=== PATIENT | female | born 1965 | race Caucasian/White ===

== ENCOUNTER → 2017-05-26 | Outpatient (CLI) | payer BC ==
--- NOTE | 2017-05-26 08:57 | US ---
EXAMINATION TYPE: US pelvic complete DATE OF EXAM: 05/26/2017 COMPARISON: NONE CLINICAL HISTORY: E34.9 Endocrine disorder, patient starting HRT due to postmenopausal symptoms. TECHNIQUE: Transabdominal (TA) Date of LMP: Patient unsure, several years postmenopausal EXAM MEASUREMENTS: Uterus: 6.7 x 4.2 x 4.6 cm Endometrial Stripe: 0.4 cm Right Ovary: 2.0 x 1.7 x 1.7 cm Left Ovary: 1.9 x 1.4 x 1.3 cm 1. Uterus: Anteverted wnl 2. Endometrium: wnl 3. Right Ovary: wnl 4. Left Ovary: wnl 5. Bilateral Adnexa: wnl 6. Posterior cul-de-sac: wnl IMPRESSION: NORMAL PELVIC ULTRASOUND.
== END | disposition home or self-care (01) ==
LOC: RADUSWWP 08:16
PROVIDERS: ATTEND Surgery
DX: E34.9 Endocrine disorder, unspecified (principal)
CPT/HCPCS: 76856

== ENCOUNTER → 2018-09-02 | Outpatient (CLI) | payer BC ==
--- NOTE | 2018-09-03 09:12 | MM ---
Reason for exam: screening (asymptomatic). Last mammogram was performed 1 year ago. History: Patient is postmenopausal. Taking estrogen for 4 months. Physical Findings: A clinical breast exam by your physician is recommended on an annual basis and results should be correlated with mammographic findings. MG 3D Screening Mammo W/Cad Bilateral CC and MLO view(s) were taken. Prior study comparison: September 01, 2017, bilateral MG 3d screening mammo w/cad. July 01, 2016, bilateral MG 3d screening mammo w/cad. There are scattered fibroglandular densities. No suspicious abnormality. No significant changes when compared with prior studies. ASSESSMENT: Negative, BI-RAD 1 RECOMMENDATION: Routine screening mammogram of both breasts in 1 year.
== END | disposition home or self-care (01) ==
LOC: RADMAMWWP 12:29
PROVIDERS: ATTEND Surgery
DX: Z12.31 Encounter for screening mammogram for malignant neoplasm of breast (principal)
CPT/HCPCS: 77063; 77067

== ENCOUNTER → 2018-09-13 | Outpatient (CLI) | payer BC ==
--- NOTE | 2018-09-14 07:27 | US ---
EXAMINATION TYPE: US pelvis complete transvag DATE OF EXAM: 09/13/2018 COMPARISON: US 05/26/2017 CLINICAL HISTORY: E34.9 HORMONE IMBALANCE. TECHNIQUE: . Transabdominal sonographic images of the pelvis were acquired. Transvaginal sonographi c images were medically necessary to better assess the following anatomy: endometrium Date of LMP: About 3 years ago EXAM MEASUREMENTS: Uterus: 7.9 x 3.8 x 4.4 cm Endometrial Stripe: 0.2 cm Right Ovary: 2.1 x 1.0 x 1.5 cm Left Ovary: 2.2 x 1.3 x 1.6 cm 1. Uterus: Anteverted Multiple nabothian cysts visualized within cervix. Heterogeneous myometrium. Multiple small probable hypoechoic fibroids visualized, largest measuring 1.6 x 1.2 x 1.3 cm 2. Endometrium: wnl 3. Right Ovary: wnl 4. Left Ovary: wnl 5. Bilateral Adnexa: wnl 6. Posterior cul-de-sac: wnl There is incidental note of a sessile filling defect within the urinary bladder that appears avascula r measuring 3 mm x 8 mm layering dependently and left laterally. This persists throughout the exam. IMPRESSION: 1. Heterogenous myometrium with few small well-circumscribed probable leiomyomas measuring up to 1.6 cm appearing intramural. 2. Incidentally noted filling defect within the urinary bladder that could represent atelectasis or a sessile neoplasm. CT urogram or direct visualization could be performed for further evaluation. 3. No endometrial thickening.
== END ==
LOC: RADUSWWP 15:29
PROVIDERS: ATTEND Surgery
DX: E34.9 Endocrine disorder, unspecified (principal)
CPT/HCPCS: 76830; 76856

== ENCOUNTER → 2019-05-02 | Outpatient (CLI) | payer OTHER ==
--- NOTE | 2019-05-02 10:15 | US ---
EXAMINATION TYPE: US abdomen complete DATE OF EXAM: 05/02/2019 COMPARISON: NONE CLINICAL HISTORY: R10.84 abdominal pain. Pt states upset stomach, bloating x 6 months EXAM MEASUREMENTS: Liver Length: 16.9 cm Gallbladder Wall: 0.3 cm CBD: 0.4 cm Spleen: 10.6 cm Right Kidney: 10.6 x 3.8 x 3.5 cm Left Kidney: 10.4 x 5.6 x 5.3 cm Pancreas: wnl, tail obscured by overlying bowel gas Liver: There is increased echogenicity of the hepatic parenchyma with diminished visualization of th e portal triads most commonly relating to hepatic steatosis and limiting evaluation for underlying he patic masses. Gallbladder: wnl Evidence for sonographic Krishnan's sign: No CBD: wnl Spleen: wnl Right Kidney: Cortical thinning with cortical scarring Left Kidney: Probable Dromedary hump Upper IVC: wnl Abd Aorta: wnl The intrahepatic portion of the IVC and proximal abdominal aorta are within normal limits. There is no evidence of cholelithiasis. Common bile duct is unremarkable. The visualized portions of the mccain creas are homogenous. The spleen is unremarkable. Kidneys are symmetric and free of hydronephrosis. No renal lesions are seen. IMPRESSION: 1. No sonographic evidence of cholelithiasis nor acute cholecystitis. 2. Sonographic findings most commonly related to hepatic steatosis. Correlate with liver function alex ts. 3. Cortical thinning in the right kidney with scarring.
== END | disposition home or self-care (01) ==
LOC: RADUSWWP 08:28
PROVIDERS: ATTEND Family Medicine
DX: N28.89 Other specified disorders of kidney and ureter (principal)
CPT/HCPCS: 76700

== ENCOUNTER → 2019-05-17 | Outpatient (CLI) | payer OTHER ==
--- NOTE | 2019-05-17 15:20 | NM ---
EXAMINATION TYPE: NM hepatobiliary w EF DATE OF EXAM: 05/17/2019 COMPARISON: Complete abdominal ultrasound 15 days ago. HISTORY: Generalized abdominal pain with diminished appetite. TECHNIQUE: After the intravenous administration of 4.19 mCi Tc 99m Mebrofenin hepatobiliary scintigra phy is performed. Immediate images post injection. FINDINGS: There is satisfactory initial accumulation of tracer by the liver. The gallbladder is visualized wit hin 20 minutes. The small bowel activity is noted within 60 minutes. At one hour 8 ounces of oral e nsure plus is given to mimic CCK and gallbladder ejection fraction is calculated at 74 %, in the norm al range. Therefore there is no scintigraphic evidence of cystic or common bile duct obstruction to suggest acute cholecystitis or gallbladder dyskinesia. IMPRESSION: Exam is within normal limits.
== END | disposition home or self-care (01) ==
LOC: RADNMMAIN 12:48
PROVIDERS: ATTEND Family Medicine
DX: R10.84 Generalized abdominal pain (principal)
CPT/HCPCS: 78226; A9537

== ENCOUNTER 2019-07-16 17:07 | Observation (INO) | payer OTHER ==
[2019-07-16] MEDS ORDERED: NITROGLYCERIN SL TABS 0.4 MG TAB SUBLINGUAL STA (17:33)
--- NOTE | 2019-07-16 17:40 | ED ---
General Adult HPI - General Chief complaint: Chest Pain Stated complaint: Back/neck pain chest tightness Time Seen by Provider: 07/16/19 17:23 Source: patient, family, RN notes reviewed Mode of arrival: wheelchair Limitations: no limitations - History of Present Illness Initial comments: Chief complaint and history of present illness this is a 54-year-old female reports that soon after she awakened this morning she had discomfort between her shoulder blades. She states that it is somewhat reproducible by deep breathing twisting and turning. Not relieved by anything. This persisted throughout the day. States she thinks she is mildly short of breath because of it. She does report that she was mildly diaphoretic at one time but at this time. Otherwise no radiation of pain. Denies any injuries from heavy lifting. - Related Data Home Medications Medication Instructions Recorded Confirmed Aspirin 650 mg PO ONCE PRN 07/16/19 07/16/19 Hormone 1 dose INTRADERMA Q90D 07/16/19 07/16/19 Pellet(Estrogen/Testosterone) Losartan-Hctz 50-12.5 mg [Hyzaar 1 tab PO DAILY 07/16/19 07/16/19 50-12.5] Naproxen Sodium [Aleve] 220 mg PO DAILY PRN 07/16/19 07/16/19 Progesterone(Unknown Dose) 1 cap PO HS 07/16/19 07/16/19 Allergies Allergy/AdvReac Type Severity Reaction Status Date / Time No Known Allergies Allergy Verified 07/16/19 17:28 Review of Systems ROS Statement: Those systems with pertinent positive or pertinent negative responses have been documented in the HPI. Review of systems. Patient denies any headache no visual acuity changes no neck pain. She describes discomfort as an ache between her shoulder blades. Persistent throughout the day. No nausea no vomiting she reports she was a little diaphoretic at home but not now. No radiation of discomfort to the arms or neck. No nausea no vomiting no neuro deficits. Patient reports the discomfort will get worse to take a deep breath or she leans forward. Not relieved by anything particular. No pain with palpation over the area. No rashes noted. All systems are reviewed. Past medical problems significant for high blood pressure for which takes medication. Patient surgeries include a . She developed tubal ligation. ALLERGIES none. Former smoker, occasional alcohol use. Family history noncontributory. ROS Other: All systems not noted in ROS Statement are negative. Past Medical History Past Medical History: No Reported History History of Any Multi-Drug Resistant Organisms: None Reported Past Surgical History: Section, Tubal Ligation, Uterine Ablation Past Anesthesia/Blood Transfusion Reactions: No Reported Reaction Past Psychological History: No Psychological Hx Reported Smoking Status: Former smoker Past Alcohol Use History: Occasional Past Drug Use History: None Reported - Past Family History Mother Family Medical History: Deep Vein Thrombosis (DVT) General Exam - General Exam Comments Initial Comments: General: The patient is awake and alert, here because of persistent discomfort that starts in the area between her shoulder blades. Vital signs shows temperature 97.5 pulse 85 respiratory rate 18 pulse ox 97% room air blood pressure 165/103. Eye: Pupils are equal, round and reactive to light, extra-ocular movements are intact; there is normal conjunctiva bilaterally. No signs of icterus. Ears, nose, mouth and throat: There are moist mucous membranes and no oral lesions. Neck: The neck is supple, there is no tenderness, no carotid bruit. Cardiovascular: There is a regular rate and rhythm. No murmur, rub or gallop is appreciated. Respiratory: Lungs are clear to auscultation, respirations are non-labored, breath sounds are equal. No wheezes, stridor, rales, or rhonchi. I'll increased discomfort with deep breathing to the area between her shoulder blades. Gastrointestinal: Soft, non-distended, non-tender abdomen without masses or organomegaly noted. There is no rebound or guarding present. No CVA tenderness. Bowel sounds are unremarkable. Back: Discomfort started and persists in the area between her shoulder blades. No evidence of any rash. No pain to palpation over the area. Mild increased discomfort with deep breathing or twisting and turning. But not leaning forward. Nothing relieves the discomfort. Musculoskeletal: Normal ROM, no tenderness, There is no pedal edema. There is no calf tenderness or swelling. Sensation intact. Neurological: No neuro deficits. Alert and oriented Skin: Skin is warm and dry and no rashes or lesions are noted. Early shingles discussed. Psychiatric: Cooperative, appropriate mood & affect. 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 Rate 78 OH interval is 142 QRS 82 QT 426 QTc 485. Prolonged QT noted. No old EKG available to compare to. Dr. Land Medical Decision Making - Medical Decision Making Decision making; this is a 54-year-old female presents emergency room this discomfort in the interscapular region. Also elevated blood pressure. Non-radiation of pain. The pain does get slightly worse with a cough or twisting or turning do not leaning forward or lying back. The patient presents with elevated blood pressure 165/103. Repeated at 185/110. Subungual nitro was given with good results rales at the blood pressure bring it down to 138/88. But without change in her discomfort in the interscapular region. For this reason the patient will have a stat CT angiogram of the aorta from ascending to abdominal runoff. Also performed at such a way to evaluate for possibility of pulmonary emboli. Patient denying any ALLERGIES to IV dye, no diabetic problems. A chest x-ray is done and reviewed by radiologist his impression is heart and m ediastinum are normal. Lungs are clear. Diaphragm is normal. Bony thorax is intact. Impression normal chest. As read by Dr. Jesus The patient's labs show white count of 5.5 hemoglobin 14 hematocrit of 41. Potassium 3.5 with a BUN of 25 creatinine 0.73 and GFR greater than 90. Glucose 97. Troponin less than 0.012. Amylase lipase within normal limits. D-dimer is 0.[address] of the thorax was reviewed by radiologist his impression is negative CT angiogram of the chest abdomen and pelvis. No evidence of hemodynamic stenosis. No evidence of arterial dissection. As read by Dr. Jesus. Chest CTA. Minimal emphysema. Minimal interstitial pulmonary density. No evidence of pulmonary embolism. As read by Dr. Ann Marie. Patient blood pressure was treated with 20 mg labetalol IV, with good results. 120/80 range. The patient be admitted for further evaluation and observation. With diagnosis of accelerated hypertension. And atypical chest pain. The patient be admitted to [facility] on-call for Dr. Pete - Lab Data Result diagrams: 07/16/19 17:40 07/16/19 17:40 Lab Results 07/16/19 07/16/19 07/16/19 Range/Units 17:40 17:40 17:40 WBC 5.5 (3.8-10.6) k/uL RBC 4.38 (3.80-5.40) m/uL Hgb 14.6 (11.4-16.0) gm/dL Hct 41.6 (34.0-46.0) % MCV 94.9 (80.0-100.0) fL MCH 33.4 (25.0-35.0) pg MCHC 35.2 (31.0-37.0) g/dL RDW 12.3 (11.5-15.5) % Plt Count 196 (150-450) k/uL Neutrophils % 37 % Lymphocytes % 51 % Monocytes % 5 % Eosinophils % 2 % Basophils % 1 % Neutrophils # 2.0 (1.3-7.7) k/uL Lymphocytes # 2.8 (1.0-4.8) k/uL Monocytes # 0.3 (0-1.0) k/uL Eosinophils # 0.1 (0-0.7) k/uL Basophils # 0.0 (0-0.2) k/uL PT 9.9 (9.0-12.0) sec INR 0.9 (<1.2) APTT 26.9 (22.0-30.0) sec D-Dimer 0.19 (<0.60) mg/L FEU Sodium 142 (137-145) mmol/L Potassium 3.5 (3.5-5.1) mmol/L Chloride 105 (98-107) mmol/L Carbon Dioxide 26 (22-30) mmol/L Anion Gap 11 mmol/L BUN 25 H (7-17) mg/dL Creatinine 0.73 (0.52-1.04) mg/dL Est GFR (CKD-EPI)AfAm >90 (>60 ml/min/1.73 sqM) Est GFR (CKD-EPI)NonAf >90 (>60 ml/min/1.73 sqM) Glucose 97 (74-99) mg/dL Calcium 9.7 (8.4-10.2) mg/dL Magnesium 2.2 (1.6-2.3) mg/dL Total Bilirubin 0.3 (0.2-1.3) mg/dL AST 32 (14-36) U/L ALT 24 (9-52) U/L Alkaline Phosphatase 78 (38-126) U/L Troponin I (0.000-0.034) ng/mL Total Protein 8.2 (6.3-8.2) g/dL Albumin 4.7 (3.5-5.0) g/dL Amylase 72 (30-110) U/L Lipase 209 (23-300) U/L 07/16/19 Range/Units 17:40 WBC (3.8-10.6) k/uL RBC (3.80-5.40) m/uL Hgb (11.4-16.0) gm/dL Hct (34.0-46.0) % MCV (80.0-100.0) fL MCH (25.0-35.0) pg MCHC (31.0-37.0) g/dL RDW (11.5-15.5) % Plt Count (150-450) k/uL Neutrophils % % Lymphocytes % % Monocytes % % Eosinophils % % Basophils % % Neutrophils # (1.3-7.7) k/uL Lymphocytes # (1.0-4.8) k/uL Monocytes # (0-1.0) k/uL Eosinophils # (0-0.7) k/uL Basophils # (0-0.2) k/uL PT (9.0-12.0) sec INR (<1.2) APTT (22.0-30.0) sec D-Dimer (<0.60) mg/L FEU Sodium (137-145) mmol/L Potassium (3.5-5.1) mmol/L Chloride (98-107) mmol/L Carbon Dioxide (22-30) mmol/L Anion Gap mmol/L BUN (7-17) mg/dL Creatinine (0.52-1.04) mg/dL Est GFR (CKD-EPI)AfAm (>60 ml/min/1.73 sqM) Est GFR (CKD-EPI)NonAf (>60 ml/min/1.73 sqM) Glucose (74-99) mg/dL Calcium (8.4-10.2) mg/dL Magnesium (1.6-2.3) mg/dL Total Bilirubin (0.2-1.3) mg/dL AST (14-36) U/L ALT (9-52) U/L Alkaline Phosphatase (38-126) U/L Troponin I <0.012 (0.000-0.034) ng/mL Total Protein (6.3-8.2) g/dL Albumin (3.5-5.0) g/dL Amylase (30-110) U/L Lipase (23-300) U/L Disposition Clinical Impression: Accelerated hypertension, Atypical chest pain Disposition: ADMITTED IP TO THIS [facility] Condition: Serious Is patient prescribed a controlled substance at d/c from ED?: No Referrals: Ramu Pete DO [Primary Care Provider] - 1-2 days
--- NOTE | 2019-07-16 17:58 | XR ---
EXAMINATION TYPE: XR chest 2V DATE OF EXAM: 07/16/2019 COMPARISON: NONE HISTORY: Neck pain back pain TECHNIQUE: Frontal and lateral views of the chest are obtained. FINDINGS: Heart and mediastinum are normal. Lungs are clear. Diaphragm is normal. There are chest le ads. Bony thorax is intact. IMPRESSION: Normal chest.
[2019-07-16] MEDS ORDERED: LABETALOL 5 MG/ML VIAL MDV IVP STA (18:19)
[2019-07-16 18:31] LABS: Basophils % (A) 1 %; Eosinophils # (A) 0.1 k/uL (0-0.7); Eosinophils % (A) 2 %; HCT 41.6 % (34.0-46.0); HGB 14.6 gm/dL (11.4-16.0); Lymphocytes # (A) 2.8 k/uL (1.0-4.8); Lymphocytes % (A) 51 %; MCH 33.4 pg (25.0-35.0); MCHC 35.2 g/dL (31.0-37.0); MCV 94.9 fL (80.0-100.0); Mean Platelet Volume 7.1; Monocytes # (A) 0.3 k/uL (0-1.0); Monocytes % (A) 5 %; Neutrophils % (A) 37 %; Platelet Count 196 k/uL (150-450); RBC 4.38 m/uL (3.80-5.40); RDW 12.3 % (11.5-15.5); WBC 5.5 k/uL (3.8-10.6)
[2019-07-16 18:34] LABS: ALT 24 U/L (9-52); AST 32 U/L (14-36); African American GFR (CKD) >90 (>60 ml/min/1.73 sqM); Albumin 4.7 g/dL (3.5-5.0); Alkaline Phosphatase 78 U/L (38-126); Amylase 72 U/L (30-110); Anion Gap 11 mmol/L; Blood Urea Nitrogen 25 mg/dL (7-17); Calcium 9.7 mg/dL (8.4-10.2); Carbon Dioxide 26 mmol/L (22-30); Chloride 105 mmol/L (98-107); Glucose 97 mg/dL (74-99); Magnesium 2.2 mg/dL (1.6-2.3); Non-African American GFR(CKD) >90 (>60 ml/min/1.73 sqM); Potassium 3.5 mmol/L (3.5-5.1); Sodium 142 mmol/L (137-145); Total Bilirubin 0.3 mg/dL (0.2-1.3); Total Protein 8.2 g/dL (6.3-8.2)
--- NOTE | 2019-07-16 18:47 | CT ---
EXAMINATION TYPE: CT chest angio for PE DATE OF EXAM: 07/16/2019 COMPARISON: None HISTORY: SOB, interscapular pain CT DLP: 305.90 mGycm Automated exposure control for dose reduction was used. CONTRAST: CT Chest for pulmonary embolism performed with with IV Contrast, patient injected with 100 mL of Isov ue 370. There are 3-D post processed images. FINDINGS: There is upper lobe mild pulmonary emphysema. The lungs are clear of consolidation. There is slight c oarsening of interstitial markings. There is no pericardial effusion. Heart is top normal in size. Th ere is no pleural effusion. There is no mediastinal adenopathy. There is no evidence of aortic aneury sm or dissection. Ascending aorta measures 3.7 cm. There is normal contrast opacification of the pulmonary arteries. There are no filling defects. The t horacic spine is intact. Bony thorax is intact. IMPRESSION: Minimal emphysema. Minimal interstitial pulmonary density. no evidence of pulmonary embolism.
--- NOTE | 2019-07-16 18:51 | CT ---
EXAMINATION TYPE: CT angio thor/abd pel aorta DATE OF EXAM: 07/16/2019 COMPARISON: None HISTORY: SOB, interscapular pain CT DLP: 574.5 mGycm. Automated Exposure Control for Dose Reduction was Utilized. CONTRAST: CT scan of the thorax, abdomen and pelvis is performed with IV Contrast, patient injected with 100 mL of Isovue 370. FINDINGS: There are 3-D post processed images. Multiple axial sections were obtained from the thoracic inlet to the floor the pelvis with intravenous contrast. There are 3-D post processed images. Thoracic aorta has fairly normal size. Ascending aorta measures 3.7 cm. There is no evidence of thora cic or abdominal aortic aneurysm or dissection. There is arterial flow in the celiac artery and super ior mesenteric artery. There is bilateral arterial flow in the renal arteries. There is bilateral art erial flow in the iliac and femoral arteries. There is no sign of hemodynamic stenosis. Stomach liver spleen pancreas gallbladder appear normal. Bile ducts are not dilated. Kidneys have nor mal size and contour. There is no hydronephrosis. There is no retroperitoneal adenopathy. Bladder dis tends smoothly. Uterus is anteverted. There is posterior wall uterine fibroid. There is no inguinal h ernia. There is no ascites or free air. There are a few sigmoid diverticula. There is no sign of dive rticulitis. Appendix appears normal. There is no sign of a bowel obstruction. Thoracic and lumbar spi ne are intact. Bony pelvis is intact. IMPRESSION: Negative CT angiogram of the chest abdomen pelvis. No evidence of hemodynamic stenosis. No evidence o f arterial dissection.
[2019-07-16 19:19] LABS: D-Dimer 0.19 mg/L FEU (<0.60); INR 0.9 (<1.2); Partial Thromboplastin Time 26.9 sec (22.0-30.0); Prothrombin Time 9.9 sec (9.0-12.0)
[2019-07-16] MEDS ORDERED: NALOXONE 0.4 MG/ML 1 ML VIAL IV PRN (19:31)
[2019-07-16] MEDS ORDERED: LORazepam 2 MG/ML INJ IV PRN (19:31)
[2019-07-16] MEDS ORDERED: ASPIRIN 325 MG TAB PO PRN (19:37)
[2019-07-16] MEDS ORDERED: NAPROXEN 250 MG TAB PO PRN (19:37)
[2019-07-17] MEDS: ACETAMINOPHEN TAB 325 MG TAB PO PRN ×2 (06:46→14:18)
[2019-07-17] MEDS ORDERED: LOSARTAN-HCTZ 50-12.5 MG 1 EACH TAB PO SCH (09:00)
[2019-07-17] MEDS ORDERED: INFLUENZA VACCINE (6 MOS+) 60 MCG/0.5 ML SYRINGE IM ONE (11:54)
[2019-07-17 12:04] VITALS: BP 119/74; PULSE 71; RESP 16; TEMP 97.6
--- NOTE | 2019-07-17 13:04 | P.CRDCN ---
History of Present Illness Consult date: 07/17/19 Consult reason: hypertension History of present illness: The patient is a 54-year-old female with past medical history of hypertension, who presented to the emergency room for acute onset shoulder discomfort. She states she could make it worse with deep breathing and occasional movement. She states the discomfort was not worse with exertion and is not associated with shortness of breath, palpitations, dizziness, or lightheadedness. EKG shows sinus mechanism without ST or T-wave changes. Cardiac enzymes normal 3. D- dimer within normal limits. She was noted to be in hypertensive crisis upon arrival. She was given a dose of labetalol and her blood pressure steadily normalized. Computed tomography scan of the chest was negative for pulmonary emboli. CT of the thoracic aorta was negative for aneurysm or dissection. PAST MEDICAL HISTORY: Hypertension, section, tubal ligation REVIEW OF SYSTEMS: No fever or chills. No cough or expectoration. No diaphoresis. Patient denies headache, dizziness, blurred vision, double vision. Patient denies any stomach discomfort. No nausea, vomiting. No hematochezia. No hematemesis. Denies any black stools or blood in his stools. Denies dysuria or hematuria. No muscle weakness or numbness. Mild discomfort between her shoulder blades. No exertional chest pain or chest pressure. No shortness of breath. No palpitations. No dizziness or vertigo. PHYSICAL EXAMINATION: This is a 54-year-old female in no apparent distress at the time of my examination. HEENT: Head is atraumatic, normocephalic. Pupils are equal, round. Sclerae anicteric. Conjunctivae are clear. Mucous membranes of the mouth are moist. Neck is supple. There is no jugular venous distention. No carotid bruit is heard. CHEST EXAMINATION: Lungs are clear to auscultation. No chest wall tenderness is noted on palpation or with deep breathing. HEART EXAMINATION: Heart regular rate and rhythm. S1, S2 heard. No murmurs, gallops or rub. ABDOMEN: Soft, nontender. Bowel sounds are heard. No organomegaly noted. EXTREMITIES: 2+ peripheral pulses with no evidence of peripheral edema and no ca lf tenderness noted. NEUROLOGIC EXAMINATION: Patient is awake, alert and oriented x3. LABORATORY DATA: WBC 5.5 hemoglobin 14.6 hematocrit 41.6 platelets 196, sodium 142, potassium 3.5, BUN 25, creatinine 0.73, magnesium 2.2, troponin negative 3, d-dimer 0.19 FINAL ASSESSMENT AND PLAN: #1 chest discomfort, ACS workup negative for acute MN, likely musculoskeletal #2 hypertensive crisis, patient has a history of hypertension #3 daily alcohol use, patient consumes several alcohol beverages daily #4 dyslipidemia PLAN: We will continue current home dose of losartan with hydrochlorothiazide. Considering increasing if needed. Start on atorvastatin 20 mg daily for dyslipidemia. Recommend outpatient stress testing and echocardiogram. Alcohol cessation discussed with patient and . Thank you kindly for this consult. Past Medical History Past Medical History: Hypertension Additional Past Medical History / Comment(s): post menopausal History of Any Multi-Drug Resistant Organisms: None Reported Past Surgical History: Section, Tubal Ligation, Uterine Ablation Past Anesthesia/Blood Transfusion Reactions: No Reported Reaction Past Psychological History: No Psychological Hx Reported Smoking Status: Former smoker Past Alcohol Use History: Daily Past Drug Use History: None Reported - Past Family History Father Family Medical History: No Reported History Additional Family Medical History / Comment(s): pts father is still living. Mother Family Medical History: Deep Vein Thrombosis (DVT) Additional Family Medical History / Comment(s): lupus inhibitor Medications and Allergies Home Medications Medication Instructions Recorded Confirmed Type Hormone 1 dose INTRADERMA Q90D 07/16/19 07/16/19 History Pellet(Estrogen/Testosterone) Naproxen Sodium [Aleve] 220 mg PO DAILY PRN 07/16/19 07/16/19 History Progesterone(Unknown Dose) 1 cap PO HS 07/16/19 07/16/19 History Acetaminophen Tab [Tylenol] 650 mg PO Q6HR PRN tab 07/17/19 Rx Atorvastatin Calcium [Lipitor] 20 mg PO HS #30 tab 07/17/19 Rx Losartan-Hctz 50-12.5 mg [Hyzaar 1.5 tab PO DAILY #30 07/17/19 07/16/19 Rx 50-12.5] Pantoprazole [Protonix] 40 mg PO AC-BRKFST #10 tablet. 07/17/19 Rx Allergies Allergy/AdvReac Type Severity Reaction Status Date / Time No Known Allergies Allergy Verified 07/16/19 17:28 Physical Exam Vitals: Vital Signs Temp Pulse Pulse Pulse Resp BP BP 07/17/19 12:00 97.6 F 71 16 07/17/19 09:33 07/17/19 09:04 97.5 F L 77 18 160/95 07/17/19 08:53 98.2 F 72 18 139/93 07/17/19 06:47 68 20 133/85 07/17/19 03:08 97.8 F 72 18 134/81 07/16/19 22:00 98.3 F 62 18 126/86 07/16/19 21:47 73 16 122/62 07/16/19 20:22 97.6 F 68 16 126/89 07/16/19 19:00 97.9 F 68 16 127/84 07/16/19 18:49 62 16 132/82 07/16/19 18:21 184/92 07/16/19 17:46 72 07/16/19 17:44 78 18 187/111 07/16/19 17:14 97.5 F L 85 18 165/103 BP Pulse Ox 07/17/19 12:00 119/74 98 07/17/19 09:33 158/90 07/17/19 09:04 97 07/17/19 08:53 100 07/17/19 06:47 98 07/17/19 03:08 97 07/16/19 22:00 98 07/16/19 21:47 97 07/16/19 20:22 98 07/16/19 19:00 98 07/16/19 18:49 07/16/19 18:21 07/16/19 17:46 07/16/19 17:44 100 07/16/19 17:14 97 Intake and Output 07/16/19 07/17/19 07/17/19 22:59 06:59 14:59 Other: # Voids 1 Weight 68.946 kg Results 07/16/19 17:40 07/16/19 17:40 Cardiac Enzymes 07/16/19 07/16/19 07/16/19 Range/Units 17:40 17:40 23:43 AST 32 (14-36) U/L Troponin I <0.012 <0.012 (0.000-0.034) ng/mL 07/17/19 Range/Units 06:12 AST (14-36) U/L Troponin I <0.012 (0.000-0.034) ng/mL Coagulation 07/16/19 Range/Units 17:40 PT 9.9 (9.0-12.0) sec APTT 26.9 (22.0-30.0) sec CBC 07/16/19 Range/Units 17:40 WBC 5.5 (3.8-10.6) k/uL RBC 4.38 (3.80-5.40) m/uL Hgb 14.6 (11.4-16.0) gm/dL Hct 41.6 (34.0-46.0) % Plt Count 196 (150-450) k/uL Comprehensive Metabolic Panel 07/16/19 Range/Units 17:40 Sodium 142 (137-145) mmol/L Potassium 3.5 (3.5-5.1) mmol/L Chloride 105 (98-107) mmol/L Carbon Dioxide 26 (22-30) mmol/L BUN 25 H (7-17) mg/dL Creatinine 0.73 (0.52-1.04) mg/dL Glucose 97 (74-99) mg/dL Calcium 9.7 (8.4-10.2) mg/dL AST 32 (14-36) U/L ALT 24 (9-52) U/L Alkaline Phosphatase 78 (38-126) U/L Total Protein 8.2 (6.3-8.2) g/dL Albumin 4.7 (3.5-5.0) g/dL Current Medications Generic Name Dose Route Start Last Admin Trade Name Freq PRN Reason Stop Dose Admin Acetaminophen 650 mg 07/16/19 19:31 07/17/19 06:46 Tylenol Tab PO 650 mg Q6HR PRN Administration Mild Pain or Fever > 100.5 Aspirin 650 mg 07/16/19 19:37 Aspirin PO ONCE PRN Chest Pain HCTZ/Losartan Potassium 1 each 07/17/19 09:00 07/17/19 10:34 Hyzaar 50-12.5 PO 1 each DAILY BUDDY Administration Lorazepam 0.5 mg 07/16/19 19:31 Ativan IV Q6HR PRN Anxiety Naloxone HCl 0.2 mg 07/16/19 19:31 Narcan IV Q2M PRN Opioid Reversal Naproxen 250 mg 07/16/19 19:37 Naprosyn PO DAILY PRN Pain Intake and Output 07/16/19 07/17/19 07/17/19 22:59 06:59 14:59 Other: # Voids 1 Weight 68.946 kg 07/16/19 17:40 07/16/19 17:40
[2019-07-17 13:50] LABS: Cholesterol 197 mg/dL (<200); HDL Cholesterol 53 mg/dL (40-60); LDL Cholesterol,Calculated 117 mg/dL (0-99); Triglycerides 134 mg/dL (<150)
[2019-07-17] MEDS ORDERED: ATORVASTATIN 20 MG TAB PO STA (15:39)
--- NOTE | 2019-07-17 18:06 | HP ---
HISTORY AND PHYSICAL DATE OF SERVICE: 07/17/2019 CHIEF COMPLAINT: Back pain I am covering for Dr. Pete. HISTORY OF PRESENT ILLNESS: This 54-year-old woman with a past history of hypertension, history of section, history of nicotine dependence, being followed by Dr. Pete in the outpatient setting complaining of severe discomfort between the shoulder blades, which was gnawing in character, somewhat reproducible by deep breathing and without radiation or any associated symptoms. Patient came to [facility] and was admitted for further evaluation and treatment. With medications, the pain reduced significantly, but still there is some discomfort according to her. In the emergency room, patient had multiple evaluations, chest CT and thoracic aortic CT scan showed no acute abnormality. Cardiology evaluation in progress. There is no history of fever, rigors or chills. No history of headache, loss of consciousness or seizures. PAST MEDICAL HISTORY: History of hypertension, history of tubal ligation and history of nicotine dependence. MEDICATIONS: Prior to admission: Home medications are: 1. Progesterone 1 capsule q.h.s. 2. Aleve 220 mg p.o. daily. 3. Hyzaar 50/10.5 mg p.o. daily. 4. Estrogen 1 dose q.a.m. 90 days. 5. Aspirin 650 p.r.n. ALLERGIES: None FAMILY HISTORY: Family history of DVT, lupus inhibitor in the family. SOCIAL HISTORY: History of alcohol. Remote history of nicotine dependence. REVIEW OF SYSTEMS: ENT: No diminished vision. No diminished hearing. CARDIOVASCULAR as mentioned earlier. RESPIRATORY: As mentioned earlier. GI no nausea or vomiting. no dysuria or hematuria. NERVOUS SYSTEM: No numbness or weakness. ALLERGY/IMMUNOLOGY: No asthma or hayfever. MUSCULOSKELETAL as mentioned earlier. HEMATOLOGY/ONCOLOGY: No history of anemia. ENDOCRINE: No history of diabetes or hypothyroidism. CONSTITUTIONAL: As mentioned earlier. DERMATOLOGY: Negative. RHEUMATOLOGY: Negative. PSYCHIATRY: As mentioned earlier. PHYSICAL EXAMINATION: Alert and oriented times three. Pulse 71, blood pressure 119/70, respirations 16, temperature 97.6, pulse ox 98% on room air. HEENT: Conjunctivae normal. Oral mucosa moist. NECK is no jugular venous distention. No carotid bruit. No lymph node enlargement. CARDIOVASCULAR SYSTEM: S1, S2. RESPIRATORY: Breath sounds diminished in the bases. No rhonchi. No crackles. ABDOMEN: Soft, nontender. No mass palpable. LEGS: No edema. No swelling. NERVOUS SYSTEM: Higher functions as mentioned earlier. Moves all 4 limbs. No focal motor or sensory deficits. Lymphatics: No lymph nodes palpable in the neck, axillae or groin. SKIN: No ulcer, no rash and no bleeding. JOINTS: No active deforming arthropathy. LABS: CBC within normal limits. Sodium 142, potassium 3.5, LDL is 117. ASSESSMENT: 1. Back pain for evaluation, rule out unstable angina. 2. Elevated LDL with hyperlipidemia. 3. Hypertension. 4. History of section. 5. Remote history of nicotine dependence. RECOMMENDATIONS AND DISCUSSION: In this 54-year-old woman who presented with multiple medical issues, at this time, we will monitor the patient closely. Continue the current medications, management and symptomatic treatment. I recommend continue with symptomatic treatment and possible stress test. Closely follow. Guarded prognosis because of multiple complex medical issues. Further recommendations to follow. A copy of dictation being forwarded to Dr. Pete who is the primary physician. See orders for details. MMODL / IJN: [id number] /
[2019-07-18] MEDS ORDERED: PANTOPRAZOLE 40 MG TABLET PO SCH (07:30)
--- NOTE | 2019-07-25 12:19 | DS ---
DISCHARGE SUMMARY DATE OF SERVICE: 07/25/2019 FINAL DIAGNOSES: 1. Back pain, possibly musculoskeletal, myocardial infarction ruled out. 2. Elevated LDL with hyperlipidemia. 3. Hypertension. 4. History of stent. 5. Remote history of nicotine dependence. DISCHARGE DISPOSITION: The patient will be discharged in stable condition with guarded prognosis. HISTORY OF PRESENT ILLNESS: This 54-year-old woman with a past medical history of multiple medical problems was admitted with back pain. Cardiology saw the patient. The patient is being discharged with further plans to follow up closely with Cardiology and as well as Dr. Pete in the outpatient setting. Myocardial infarction ruled out. On exam, vitals are stable. CARDIOVASCULAR SYSTEM: S1, S2, muffled. ABDOMEN: Soft. NERVOUS SYSTEM: No focal deficits. DISCHARGE DIET: Cardiac diet. Activity limited until followup. Follow up with Dr. Pete in 1-2 days. Follow up with Cardiology in 1-2 days. MEDICATIONS ARE: 1. Naprosyn p.r.n. 2. Hormones as before. 3. Losartan hydrochlorothiazide 50/12.5 mg 1.5 mg daily per Cardiology recommendations. 4. Lipitor 20 mg q.h.s. 5. Protonix 40 mg daily. 6. Tylenol p.r.n. Once again, the patient will be discharged in a stable condition with guarded prognosis. MMODL / IJN: [id number] /
== END 2019-07-17 15:50 | disposition home or self-care (01) ==
LOC: EC 17:07 → 1SOBS 19:37
PROVIDERS: ADMIT Internal Medicine; ATTEND Internal Medicine
DX: R07.89 Other chest pain (principal); I16.9 Hypertensive crisis, unspecified; M54.9 Dorsalgia, unspecified; I10 Essential (primary) hypertension; R06.02 Shortness of breath; R61 Generalized hyperhidrosis; Z72.89 Other problems related to lifestyle; Z78.0 Asymptomatic menopausal state; E78.5 Hyperlipidemia, unspecified; Z23 Encounter for immunization; Z79.1 Long term (current) use of non-steroidal anti-inflammatories (NSAID); Z79.82 Long term (current) use of aspirin; Z79.890 Hormone replacement therapy; Z79.899 Other long term (current) drug therapy; Z87.891 Personal history of nicotine dependence; Z98.891 History of uterine scar from previous surgery; Z98.51 Tubal ligation status; Z82.49 Family history of ischemic heart disease and other diseases of the circulatory system; Z82.69 Family history of other diseases of the musculoskeletal system and connective tissue
CPT/HCPCS: 93005 ×2; 96374; 99285; 36415; 85379; 80061; 80053; 82150; 83690; 83735; 84484 ×2; 85025; 85610; 85730; 71046; 71275; 74174; 90686; G0378 ×2; G0008; Q9967

== ENCOUNTER → 2020-05-31 | Outpatient (CLI) | payer OTHER ==
--- NOTE | 2020-06-06 09:26 | MM ---
Reason for exam: screening (asymptomatic). Last mammogram was performed 1 year and 9 months ago. History: Patient is postmenopausal. Taking estrogen for 2 years. Physical Findings: A clinical breast exam by your physician is recommended on an annual basis and results should be correlated with mammographic findings. MG 3D Screening Mammo W/Cad Bilateral CC and MLO view(s) were taken. Prior study comparison: September 02, 2018, bilateral MG 3d screening mammo w/cad. September 01, 2017, bilateral MG 3d screening mammo w/cad. There are scattered fibroglandular densities. No significant changes when compared with prior studies. ASSESSMENT: Negative, BI-RAD 1 RECOMMENDATION: Routine screening mammogram of both breasts in 1 year.
== END | disposition home or self-care (01) ==
LOC: RADMAMWWP 14:38
PROVIDERS: ATTEND Obstetrics & Gynecology
DX: Z12.31 Encounter for screening mammogram for malignant neoplasm of breast (principal)
CPT/HCPCS: 77063; 77067

== ENCOUNTER → 2021-07-29 | Outpatient (CLI) | payer OTHER ==
--- NOTE | 2021-07-31 10:44 | MM ---
Reason for exam: screening (asymptomatic). Last mammogram was performed 1 year and 2 months ago. History: Patient is postmenopausal. Taking estrogen for 6 years beginning at age 49. Physical Findings: A clinical breast exam by your physician is recommended on an annual basis and results should be correlated with mammographic findings. MG 3D Screening Mammo W/Cad Bilateral CC and MLO view(s) were taken. XCCL view(s) were taken of the left breast. Prior study comparison: May 31, 2020, bilateral MG 3d screening mammo w/cad. September 02, 2018, bilateral MG 3d screening mammo w/cad. The breast tissue is heterogeneously dense. This may lower the sensitivity of mammography. No significant changes when compared with prior studies. ASSESSMENT: Benign, BI-RAD 2 RECOMMENDATION: Routine screening mammogram of both breasts in 1 year.
== END | disposition home or self-care (01) ==
LOC: RADMAMWWP 10:28
PROVIDERS: ATTEND Family Medicine
DX: Z12.31 Encounter for screening mammogram for malignant neoplasm of breast (principal); Z80.3 Family history of malignant neoplasm of breast
CPT/HCPCS: 77063; 77067

== ENCOUNTER → 2021-10-11 | Outpatient (CLI) | payer OTHER ==
--- NOTE | 2021-10-11 15:39 | BD ---
EXAMINATION TYPE: Axial Bone Density DATE OF EXAM: 10/11/2021 COMPARISON: NONE CLINICAL HISTORY: Height: 63.5 IN Weight: 154 LBS RISK FACTORS HISTORY OF: Active: YES Diet low in dairy products/other sources of calcium: YES Postmenopausal woman: AGE 49 Take estrogen and/or progesterone medications: YES How lon YEARS MEDICATIONS: Additional Medications: CALCIUM, VIT D, BLOOD PRESSURE MEDS, LIPITOR, HORMONE PELLET EXAM MEASUREMENTS: Bone mineral densitometry was performed using the [employer]. Bone mineral density as measured about the Lumbar spine is: ----- L1-L4(G/cm2): 1.114 T Score Values are as follows: ----- L2: -0.6 ----- L3: -0.5 ----- L4: -0.9 ----- L1-L4: -0.6 Bone mineral density BASELINE Bone mineral density about the R hip (g/cm2): 0.791 Bone mineral density about the L hip (g/cm2): 0.844 T Score values are as follows: -----R Neck: -1.8 -----L Neck: -1.4 -----R Total: -1.0 -----L Total: -0.8 Bone mineral density BASELINE IMPRESSION: Osteopenia (T Score between -2.5 and -1). There is slightly increased risk of fracture and the patient may be considered for treatment. Re-Screen 2-5 years. NOTE: T-SCORE=SD OF THE YOUNG ADULT MEAN.
== END | disposition home or self-care (01) ==
LOC: RADBDWWP 09:05
PROVIDERS: ATTEND Obstetrics & Gynecology
DX: M85.89 Other specified disorders of bone density and structure, multiple sites (principal)
CPT/HCPCS: 77080

== ENCOUNTER → 2022-07-30 | Outpatient (CLI) | payer OTHER ==
--- NOTE | 2022-07-31 20:48 | MM ---
Reason for Exam: Screening (asymptomatic). Last screening mammogram was performed 12 month(s) ago. Patient History: Menarche at age 13. First Full-Term at age 18. Postmenopausal. Currently using Estrogen, beginning at age 49 for 8 years. Risk Values: Betzy 5 year model risk: 0.9%. NCI Lifetime model risk: 5.1%. Prior Study Comparison: 09/02/2018 Bilateral Screening Mammogram, [facility]. 05/31/2020 Bilateral Screening Mammogram, [facility]. 07/29/2021 Bilateral Screening Mammogram, [facility]. Tissue Density: There are scattered fibroglandular densities. Findings: Analyzed By CAD. There is no suspicious group of microcalcifications or new suspicious mass in either breast. Overall Assessment: Negative, BI-RAD 1 Management: Screening Mammogram of both breasts in 1 year. 1. Patient should continue monthly self breast exams. 2. A clinical breast exam by your physician is recommended on an annual basis. 3. This exam should not preclude additional follow-up of suspicious palpable abnormalities. Electronically signed and approved by: Tran Bustos M.D. Radiologist
== END | disposition home or self-care (01) ==
LOC: RADMAMWWP 08:59
PROVIDERS: ATTEND Obstetrics & Gynecology
DX: Z12.31 Encounter for screening mammogram for malignant neoplasm of breast (principal); Z78.0 Asymptomatic menopausal state
CPT/HCPCS: 77063; 77067

== ENCOUNTER → 2022-08-13 | Outpatient (CLI) | payer OTHER ==
--- NOTE | 2022-08-13 16:43 | XR ---
EXAMINATION TYPE: XR thoracic spine complete, XR cervical spine limited DATE OF EXAM: 08/13/2022 3:28 PM INDICATION: Patient age:Female; 57 years old; Reason for study: M54.2,M54.6; [facility]. COMPARISON: Chest radiograph 07/16/2019 TECHNIQUE: 2 views of the thoracic spine in Frontal and lateral projections. Frontal lateral and odon toid views of the cervical spine were submitted. FINDINGS: Thoracic spine: No evidence of acute fracture. There is no evidence of disk space narrowing or loss of vertebral bod y height. Mild S-shaped scoliosis. No evidence for significant height loss of the vertebral bodies. N o evidence of significant spinal canal neural femoral stenosis. Cervical spine: Mild osteophyte formation along the anterior aspect. The odontoid appears in tact. No evidence for acute fracture. Alignment appears appropriate. No evidence of significant spinal canal neural femoral stenosis. IMPRESSION: 1. No acute osseous pathology. 2. Mild multilevel disc degeneration changes. 3. Mild S-shaped scoliosis.
== END | disposition home or self-care (01) ==
LOC: RADXRMAIN 15:05
PROVIDERS: ATTEND Family Medicine
DX: M41.9 Scoliosis, unspecified (principal); M54.2 Cervicalgia; M54.6 Pain in thoracic spine
CPT/HCPCS: 72040; 72072

== ENCOUNTER → 2023-09-09 | Outpatient (CLI) | payer OTHER ==
--- NOTE | 2023-09-10 08:33 | MM ---
Reason for Exam: Screening (asymptomatic). Last mammogram was performed 1 year(s) and 1 month(s) ago. Patient History: Menarche at age 13. First Full-Term at age 18. Postmenopausal. Currently using Estrogen, beginning at age 49 for 8 years. Risk Values: Betzy 5 year model risk: 0.9%. NCI Lifetime model risk: 5.0%. Prior Study Comparison: 05/31/2020 Bilateral Screening Mammogram, [facility]. 07/29/2021 Bilateral Screening Mammogram, [facility]. 07/30/2022 Bilateral MG 3D screening mammo w/cad, [facility]. Tissue Density: The breast tissue is heterogeneously dense. This may lower the sensitivity of mammography. Findings: Analyzed By CAD. There is no suspicious group of microcalcifications or new suspicious mass in either breast. Overall Assessment: Negative, BI-RAD 1 Management: Screening Mammogram of both breasts in 1 year. . Patient should continue monthly self-breast exams. A clinical breast exam by your physician is recommended on an annual basis. This exam should not preclude additional follow-up of suspicious palpable abnormalities. Note on Betzy scores and lifetime risk: 1. A Betzy score greater than 3% is considered moderate risk. If this is the case, consider specialist referral to assess eligibility for a risk reducing agent. 2. If overall lifetime risk for the development of breast cancer is 20% or higher, the patient may qualify for future screening with alternating mammogram and breast MRI. Electronically signed and approved by: Shahab Pardo M.D. Radiologis
== END | disposition home or self-care (01) ==
LOC: RADMAMWWP 15:50
PROVIDERS: ATTEND Obstetrics & Gynecology
DX: Z12.31 Encounter for screening mammogram for malignant neoplasm of breast (principal); Z78.0 Asymptomatic menopausal state
CPT/HCPCS: 77063; 77067

== ENCOUNTER → 2024-01-27 | Outpatient (CLI) | payer OTHER ==
--- NOTE | 2024-01-27 16:41 | XR ---
EXAMINATION TYPE: XR chest 2V DATE OF EXAM: 01/27/2024 3:46 PM CLINICAL INDICATION:Female, 59 years old with history of R05.9 COUGH R09.81 CHEST CONGESTION; [facility] COMPARISON: Chest radiographs from 07/15/2019. TECHNIQUE: XR chest 2V Frontal and lateral views of the chest. FINDINGS: Lungs/Pleura: There is no evidence of pleural effusion, focal consolidation, or pneumothorax. Pulmonary vascularity: Unremarkable. Heart/mediastinum: Cardiomediastinal silhouette is unremarkable. Musculoskeletal: No acute osseous pathology. IMPRESSION: No acute cardiopulmonary disease/process.
== END | disposition home or self-care (01) ==
LOC: RADXRMAIN 15:32
PROVIDERS: ATTEND Nurse Practitioner Family
DX: R05.9 Cough, unspecified (principal); R09.81 Nasal congestion
CPT/HCPCS: 71046

== ENCOUNTER → 2024-09-15 | Outpatient (CLI) | payer OTHER ==
--- NOTE | 2024-09-16 12:08 | MM ---
Reason for Exam: Screening (asymptomatic). Last screening mammogram was performed 12 month(s) ago. Indicated Problems: Lump or thickening for 2 Day(s). Patient History: Menarche at age 13. First Full-Term at age 18. Postmenopausal. Currently using Estrogen, beginning at age 49 for 8 years. Risk Values: Betzy 5 year model risk: 0.9%. NCI Lifetime model risk: 4.9%. Prior Study Comparison: 07/29/2021 Bilateral Screening Mammogram, [facility]. 07/30/2022 Bilateral MG 3D screening mammo w/cad, [facility]. 09/09/2023 Bilateral MG 3D screening mammo w/cad, [facility]. Tissue Density: The breasts are heterogeneously dense, which may obscure small masses. Findings: Analyzed By CAD. There is no suspicious group of microcalcifications or new suspicious mass in either breast. Overall Assessment: Negative, BI-RAD 1 Management: Screening Mammogram of both breasts in 1 year. . Patient should continue monthly self-breast exams. A clinical breast exam by your physician is recommended on an annual basis. This exam should not preclude additional follow-up of suspicious palpable abnormalities. Note on Betzy scores and lifetime risk: 1. A Betzy score greater than 3% is considered moderate risk. If this is the case, consider specialist referral to assess eligibility for a risk reducing agent. 2. If overall lifetime risk for the development of breast cancer is 20% or higher, the patient may qualify for future screening with alternating mammogram and breast MRI. [facility], , 09/16/2024 12:05 PM. Electronically signed and approved by: Shahab Pardo M.D. Radiologis
== END | disposition home or self-care (01) ==
LOC: RADMAMWWP 16:18
PROVIDERS: ATTEND Obstetrics & Gynecology
DX: Z12.31 Encounter for screening mammogram for malignant neoplasm of breast (principal); Z78.0 Asymptomatic menopausal state; R92.333 Mammographic heterogeneous density, bilateral breasts
CPT/HCPCS: 77063; 77067

== ENCOUNTER 2024-09-19 13:30 | Day surgery (SDC) | payer OTHER ==
[2024-09-16 08:51] VITALS: BMI 24.4
[2024-09-19 14:01] VITALS: TEMP 97.5
[2024-09-19] MEDS: LIDOCAINE 1% (10MG/ML) FOR IV START INTRADERMA PRN (14:08)
[2024-09-19] MEDS: IV FLUID CONTINUATION 1,000 ML IV ONE ×2 (14:09→15:02)
[2024-09-19] MEDS: LACTATED RINGERS 1,000 ML IV SCH (14:09)
[2024-09-19 14:14] LABS: Glucose,Whole Blood 77 mg/dL (70-110)
--- NOTE | 2024-09-19 15:01 | P.GSHP ---
History of Present Illness H&P Date: 09/19/24 Chief Complaint: Screening colonoscopy This a 59-year-old female presents today for screening colonoscopy. Patient denies any significant GI complaints. Past Medical History Past Medical History: GERD/Reflux, Hyperlipidemia, Hypertension Additional Past Medical History / Comment(s): post menopausal History of Any Multi-Drug Resistant Organisms: None Reported Past Surgical History: Section, Tubal Ligation, Uterine Ablation Additional Past Surgical History / Comment(s): colonoscopy Past Anesthesia/Blood Transfusion Reactions: No Reported Reaction Additional Past Anesthesia/Blood Transfusion Reaction / Comment(s): no blood transfusion Smoking Status: Never smoker - Past Family History Father Family Medical History: No Reported History Additional Family Medical History / Comment(s): pts father is still living. Mother Family Medical History: Deep Vein Thrombosis (DVT) Additional Family Medical History / Comment(s): lupus inhibitor Medications and Allergies Home Medications Medication Instructions Recorded Confirmed Type Hormone 1 dose INTRADERMA Q90D 07/16/19 09/19/24 History Pellet(Estrogen/Testosterone) Naproxen Sodium [Aleve] 220 mg PO DAILY PRN 07/16/19 09/19/24 History Progesterone(Unknown Dose) 1 cap PO HS 07/16/19 09/19/24 History Acetaminophen Tab [Tylenol] 650 mg PO Q6HR PRN tab 07/17/19 09/19/24 Rx Atorvastatin Calcium [Lipitor] 20 mg PO HS #30 tab 07/17/19 09/19/24 Rx Losartan-Hctz 50-12.5 mg [Hyzaar 1.5 tab PO DAILY #30 07/17/19 09/19/24 Rx 50-12.5] Pantoprazole [Protonix] 40 mg PO AC-BRKFST #10 tablet.dr 07/17/19 09/19/24 Rx Semaglutide [Ozempic] 0.25 mg SQ WEEKLY 09/16/24 09/19/24 History metFORMIN HCL [Glucophage] 850 mg PO HS 09/16/24 09/19/24 History Allergies Allergy/AdvReac Type Severity Reaction Status Date / Time No Known Allergies Allergy Verified 09/19/24 13:52 Surgical - Exam Vital Signs Temp Pulse Resp BP Pulse Ox 97.5 F L 87 14 198/88 99 09/19/24 13:57 09/19/24 13:57 09/19/24 13:57 09/19/24 13:57 09/19/24 13:57 - General well developed, well nourished, no distress - Eyes PERRL - ENT normal pinna, normal nares, normal mucosa - Neck no masses - Respiratory normal expansion - Cardiovascular Rhythm: regular - Abdomen Abdomen: soft, non tender Assessment and Plan Assessment: Will perform screening colonoscopy.
[2024-09-19] MEDS ORDERED: PROPOFOL 10 MG/ML 20 ML VIAL IV ONE (15:04)
--- NOTE | 2024-09-19 15:29 | P.OP ---
Date of Procedure: 09/19/24 Preoperative Diagnosis: Screening colonoscopy Postoperative Diagnosis: Diverticulosis Procedure(s) Performed: Colonoscopy Anesthesia: MAC Surgeon: Mitchel Jimenez Condition: stable Disposition: PACU Description of Procedure: The patient was placed on the endoscopy table in the lateral position. She received IV sedation. Digital rectal exam was performed. This revealed already Balas. The flexible colonoscope was then placed patient anus and passed into the colon. The scope not be advanced beyond the sigmoid colon secondary tortuosity bowel. At this point scope was withdrawn. And then a pediatric colonoscope was placed the patient's anus and passed throughout the colon. Scope was placed to the level of the mid transverse colon. Could not be advanced secondary tortuosity of the colon. This point scope was withdrawn. There were diverticular changes noted in si the transverse and descending colon. There was diverticular changes noted in the sigmoid colon. Scope was then brought back into the rectum this appeared normal. Scope withdrawn for the patient.
[2024-09-19 15:33] VITALS: RESP 16
[2024-09-19 15:52] VITALS: BP 128/84; PULSE 78
== END 2024-09-19 16:02 | disposition home or self-care (01) ==
LOC: ORWHC2ENDO 13:30
PROVIDERS: ATTEND Surgery
DX: Z12.11 Encounter for screening for malignant neoplasm of colon (principal); K57.30 Diverticulosis of large intestine without perforation or abscess without bleeding; E78.5 Hyperlipidemia, unspecified; I10 Essential (primary) hypertension; K21.9 Gastro-esophageal reflux disease without esophagitis; Z98.51 Tubal ligation status; Z79.899 Other long term (current) drug therapy

== ENCOUNTER 2024-12-03 18:19 | Inpatient (IN) | payer OTHER ==
[2024-12-03] MEDS ORDERED: NALOXONE 0.4 MG/ML 1 ML VIAL IV PRN (18:22)
--- NOTE | 2024-12-03 18:28 | ED ---
General Adult HPI - General Stated complaint: STEMI Time Seen by Provider: 12/03/24 18:21 Source: patient, EMS, RN notes reviewed, old records reviewed - History of Present Illness Initial comments: 59 [id number] female transferred from [facility] for cardiology consultation and acute heart catheterization. Patient care was coordinated from outside hospital with Dr. Pravin mallory for cardiology who did recommend the patient be transferred to this hospital for urgent heart catheterization. There was concern for ST segment elevation. The patient had initially presented with chest discomfort to outside hospital. She had been given aspirin, heparin, morphine. At the time my evaluation patient resting comfortably with no significant chest pain. Patient briefly stops off in the emergency department awaiting the Stores Assistant team. - Related Data Home Medications Medication Instructions Recorded Confirmed Hormone 1 dose INTRADERMA Q90D 07/16/19 09/19/24 Pellet(Estrogen/Testosterone) Naproxen Sodium [Aleve] 220 mg PO DAILY PRN 07/16/19 09/19/24 Progesterone(Unknown Dose) 1 cap PO HS 07/16/19 09/19/24 Semaglutide [Ozempic] 0.25 mg SQ WEEKLY 09/16/24 09/19/24 metFORMIN HCL [Glucophage] 850 mg PO HS 09/16/24 09/19/24 Previous Rx's Medication Instructions Recorded Acetaminophen Tab [Tylenol] 650 mg PO Q6HR PRN tab 07/17/19 Atorvastatin Calcium [Lipitor] 20 mg PO HS #30 tab 07/17/19 Losartan-Hctz 50-12.5 mg [Hyzaar 1.5 tab PO DAILY #30 07/17/19 50-12.5] Pantoprazole [Protonix] 40 mg PO AC-BRKFST #10 tablet. 07/17/19 Allergies Allergy/AdvReac Type Severity Reaction Status Date / Time No Known Allergies Allergy Verified 12/03/24 18:32 Review of Systems ROS Statement: Those systems with pertinent positive or pertinent negative responses have been documented in the HPI. ROS Other: All systems not noted in ROS Statement are negative. Past Medical History Past Medical History: Hypertension Additional Past Medical History / Comment(s): post menopausal History of Any Multi-Drug Resistant Organisms: None Reported Past Surgical History: Section, Tubal Ligation, Uterine Ablation Past Anesthesia/Blood Transfusion Reactions: No Reported Reaction Past Psychological History: No Psychological Hx Reported Past Alcohol Use History: Daily Past Drug Use History: None Reported - Past Family History Father Family Medical History: No Reported History Additional Family Medical History / Comment(s): pts father is still living. Mother Family Medical History: Deep Vein Thrombosis (DVT) Additional Family Medical History / Comment(s): lupus inhibitor General Exam General appearance: alert, in no apparent distress Head exam: Present: atraumatic, normocephalic Eye exam: Present: normal appearance, PERRL ENT exam: Present: normal exam Neck exam: Present: normal inspection. Absent: tenderness, meningismus Respiratory exam: Present: normal lung sounds bilaterally. Absent: respiratory distress, wheezes Cardiovascular Exam: Present: regular rate, normal rhythm GI/Abdominal exam: Present: soft. Absent: distended, tenderness, guarding Neurological exam: Present: alert, oriented X3 Psychiatric exam: Present: normal affect, normal mood Skin exam: Present: warm, dry, intact Course Vital Signs 12/03/24 18:21 Temperature 98.3 F Pulse Rate 94 Respiratory 18 Rate Blood Pressure 144/95 O2 Sat by Pulse 98 Oximetry Medical Decision Making - Medical Decision Making Was pt. sent in by a medical professional or institution (TOVA Rizo, HEMATOLOGY TECHNICIAN, urgent care, hospital, or long-term...) When possible be specific @ -Transferred from [facility] Did you speak to anyone other than the patient for history (EMS, parent, family, police, friend...)? What history was obtained from this source @ -No Did you review nursing and triage notes (agree or disagree)? Why? @ -I reviewed and agree with nursing and triage notes Were old charts reviewed (outside hosp., previous admission, EMS record, old EKG, old radiological studies, urgent care reports/EKG's, long-term records)? Report findings @ -No old charts were reviewed Differential Chest Pain: Stable Angina, Unstable Angina, STEMI, NSTEMI Aortic Dissection, Pneumothorax, Musculoskeletal, Esophageal Spasm GERD, Cholecystitis, Pancreatitis, Zoster, this is not meant to be an all-inclusive list. EKG interpreted by me (3pts min.). @ -EKG obtained at 1822, sinus rhythm no ST segment elevation, there is IN depression in lead II and III no T wave inversion ventricular rate of 87, IN interval 141, QRS duration 83, QTc 397 X-rays interpreted by me (1pt min.). @Single view chest x-ray is negative for acute process, no pneumothorax, no consolidated pneumonia CT interpreted by me (1pt min.). @ -None done U/S interpreted by me (1pt. min.). @ -None done What testing was considered but not performed or refused? (CT, X-rays, U/S, labs)? Why? @ -None What meds were considered but not given or refused? Why? @ -None Did you discuss the management of the patient with other professionals (professionals i.e. DrWilber, PA, HEMATOLOGY TECHNICIAN, lab, RT, psych nurse, high school social studies tutor, green promotions specialist, teacher, escrow officer, case liner)? Give summary @ -[facility] Was smoking cessation discussed for >3mins.? @ -No Was critical care preformed (if so, how long)? @ -No Were there social determinants of health that impacted care today? How? (Homelessness, low income, unemployed, alcoholism, drug addiction, transportation, low edu. Level, literacy, decrease access to med. care, long term, rehab)? @ -No Was there de-escalation of care discussed even if they declined (Discuss DNR or withdrawal of care, Hospice)? DNR status @ -No What co-morbidities impacted this encounter? (DM, HTN, Smoking, COPD, CAD, Cancer, CVA, ARF, Chemo, Hep., AIDS, mental health diagnosis, sleep apnea, morbid obesity)? @ -None Was patient admitted / discharged? Hospital course, mention meds given and route, prescriptions, significant lab abnormalities, going to OR and other pertinent info. @ -59-year-old female transfer from outside hospital with reported ST segment elevation. EKG obtained in the emergency department at [address] segment elevation. Patient had been treated prior to transfer and is awaiting the Stores Assistant for intervention. Dr. Costello is aware of patient. Patient will be admitted to [facility]. Laboratory test will be obtained Undiagnosed new problem with uncertain prognosis? @ -No Drug Therapy requiring intensive monitoring for toxicity (Heparin, Nitro, Insulin, Cardizem)? @ -No Were any procedures done? @ -No Diagnosis/symptom? @ CP, Rule out UT Acute, or Chronic, or Acute on Chronic? @ -acute Uncomplicated (without systemic symptoms) or Complicated (systemic symptoms)? @ -complicated Side effects of treatment? @ -No Exacerbation, Progression, or Severe Exacerbation? @ -No Poses a threat to life or bodily function? How? (Chest pain, USA, UT, pneumonia, PE, COPD, DKA, ARF, appy, cholecystitis, CVA, Diverticulitis, Homicidal, Suicidal, threat to staff... and all critical care pts) @ -[yes, ACS Disposition Clinical Impression: Chest pain Disposition: ADMITTED IP TO THIS HOSP Condition: Stable Is patient prescribed a controlled substance at d/c from ED?: No Time of Disposition: 18:28
[2024-12-03] MEDS: ATORVASTATIN 80 MG TAB PO STA (18:36)
[2024-12-03] MEDS: ASPIRIN 325 MG TAB PO STA (18:36)
[2024-12-03 18:38] LABS: Basophils % (A) 0 %; Eosinophils # (A) 0.1 k/uL (0-0.7); Eosinophils % (A) 1 %; HGB 14.3 gm/dL (11.4-16.0); Lymphocytes # (A) 2.9 k/uL (1.0-4.8); Lymphocytes % (A) 33 %; MCH 31.8 pg (25.0-35.0); MCHC 32.5 g/dL (31.0-37.0); MCV 97.9 fL (80.0-100.0); Monocytes # (A) 0.5 k/uL (0-1.0); Monocytes % (A) 6 %; Neutrophils % (A) 57 %; Platelet Count 235 k/uL (150-450); RBC 4.49 m/uL (3.80-5.40); RDW 12.2 % (11.5-15.5); WBC 8.8 k/uL (3.8-10.6)
--- NOTE | 2024-12-03 18:38 | XR ---
EXAMINATION TYPE: XR chest 1V portable DATE OF EXAM: 12/03/2024 6:31 PM COMPARISON: Chest radiograph 01/27/2024. CLINICAL INDICATION: Female, 59 years old with history of chest pain; [facility] TECHNIQUE: XR chest 1V portable Frontal view of the chest. FINDINGS: Lungs/Pleura: There is no evidence of pleural effusion, focal consolidation, or pneumothorax. Pulmonary vascularity: Unremarkable. Heart/mediastinum: Cardiomediastinal silhouette is unremarkable. Musculoskeletal: No acute osseous pathology. Other findings: None IMPRESSION: No acute cardiopulmonary disease/process. [facility], , 12/03/2024 6:36 PM
--- NOTE | 2024-12-03 18:50 | P.CRDCN ---
History of Present Illness Consult date: 12/03/24 History of present illness: HISTORY OF PRESENTING ILLNESS: Patient is a 59-year-old female with past medical history of hypertension and dyslipidemia. She presented to [facility] because of substernal chest pressure. She reports that this morning around 4 AM she woke up because of substernal chest pressure which has been persistent. Over the course of time it has gotten worse and around 2 PM she decided to come to the ER. There was nothing that would make the chest pain get worse or better. She has mostly stayed in the bed throughout the day and hope of feeling better. She denies any prior history of coronary artery disease. She denies any history of stroke, malignancies, bleeding problems. Does not smoke marijuana or cigarettes. Does use alcohol 2-3 drinks almost every day basis beer and wine. Denies any relevant family history of premature coronary artery disease or sudden cardiac I was notified by [facility] around 6 PM about the chest pain and mild abnormal EKG. On review of the EKG it appears to be sinus rhythm with subtle [address] elevations in inferior lead with lateral restrictions. For this STEMI was activated and patient was transferred to [facility]. REVIEW OF SYSTEMS: 14 point review of system is negative except what is mentioned above in HPI. PHYSICAL EXAMINATION: Neck: Brisk carotid upstroke, no jugular venous distention. Lungs: Clear to auscultation. Heart: Regular rate and rhythm, S1-S2, , no murmur or rub. Abdomen: Soft nontender, positive bowel sounds. Extremities: No edema, intact distal pulses. Neuro: Alert, oritented, no focal deficits. Detailed neuro exam was not performed. ASSESSMENT: # Inferolateral STEMI # Essential hypertension # Dyslipidemia # Daily alcohol use 2-3 drinks PLAN: Plan for emergent cardiac authorization. Further recommendations to follow Obtain echocardiogram Allen Costello MD, FACC, RPVI Thank you for allowing [facility] to participate in this patient's care. Feel free to reach out in case of any followup questions. Past Medical History Past Medical History: Hypertension Additional Past Medical History / Comment(s): post menopausal History of Any Multi-Drug Resistant Organisms: None Reported Past Surgical History: Section, Tubal Ligation, Uterine Ablation Past Anesthesia/Blood Transfusion Reactions: No Reported Reaction Past Psychological History: No Psychological Hx Reported Past Alcohol Use History: Daily Past Drug Use History: None Reported - Past Family History Father Family Medical History: No Reported History Additional Family Medical History / Comment(s): pts father is still living. Mother Family Medical History: Deep Vein Thrombosis (DVT) Additional Family Medical History / Comment(s): lupus inhibitor Medications and Allergies Home Medications Medication Instructions Recorded Confirmed Type Hormone 1 dose INTRADERMA Q90D 07/16/19 12/03/24 History Pellet(Estrogen/Testosterone) Acetaminophen Tab [Tylenol] 650 mg PO Q6HR PRN tab 07/17/19 12/03/24 Rx Atorvastatin Calcium [Lipitor] 20 mg PO HS #30 tab 07/17/19 12/03/24 Rx metFORMIN HCL [Glucophage] 850 mg PO HS 09/16/24 12/03/24 History Losartan [Cozaar] 50 mg PO HS 12/03/24 12/03/24 History Progesterone, Micronized 200 mg PO HS 12/03/24 12/03/24 History [Progesterone] hydroCHLOROthiazide [Hydrodiuril] 12.5 mg PO DAILY 12/03/24 12/03/24 History Allergies Allergy/AdvReac Type Severity Reaction Status Date / Time No Known Allergies Allergy Verified 12/03/24 18:32 Physical Exam Vitals: Vital Signs Temp Pulse Resp BP Pulse Ox 12/03/24 18:21 98.3 F 94 18 144/95 98 Intake and Output 12/03/24 12/03/24 12/03/24 06:59 14:59 22:59 Other: Weight 0 g Results 12/03/24 18:33 CBC 12/03/24 Range/Units 18:33 WBC 8.8 (3.8-10.6) k/uL RBC 4.49 (3.80-5.40) m/uL Hgb 14.3 (11.4-16.0) gm/dL Hct 44.0 (34.0-46.0) % Plt Count 235 (150-450) k/uL Current Medications Generic Name Dose Route Start Last Admin Trade Name Freq PRN Reason Stop Dose Admin Naloxone HCl 0.2 mg 12/03/24 18:22 Naloxone 0.4 Mg/Ml 1 Ml Vial IV Q2M PRN Opioid Reversal Intake and Output 12/03/24 12/03/24 12/03/24 06:59 14:59 22:59 Other: Weight 0 g Patient Weight 12/04/24 07:59 Weight 0 g 12/03/24 18:33
[2024-12-03] MEDS: LIDOCAINE 1% INJ 10MG/ML (20 ML MDV) SQ ONE (18:52)
[2024-12-03] MEDS: MIDAZOLAM 2 MG/2 ML VIAL IVP ONE (18:53)
[2024-12-03] MEDS: fentaNYL (PF) 50 MCG/ML 2 ML AMP IVP ONE (18:53)
[2024-12-03] MEDS: VERAPAMIL SYRINGE (5 MG/10 ML) INTRAARTER ONE (18:54)
[2024-12-03 18:58] LABS: Prothrombin Time 11.4 sec (10.0-12.5)
[2024-12-03] MEDS: SODIUM CHLORIDE 0.9% 1,000 ML IV ONE (18:58)
[2024-12-03] MEDS: IOPAMIDOL-370 100ML BTL INJ ONE (19:02)
[2024-12-03 19:06] LABS: Partial Thromboplastin Time >200.0 sec (22.0-30.0)
[2024-12-03 19:31] LABS: Glucose,Whole Blood 84 mg/dL (70-110)
[2024-12-03 19:36] LABS: ALT 12 U/L (4-34); AST 27 U/L (14-36); African American GFR (CKD) >90 (>60 ml/min/1.73 sqM); Albumin 4.4 g/dL (3.5-5.0); Alkaline Phosphatase 60 U/L (38-126); Anion Gap 10 mmol/L; Blood Urea Nitrogen 16 mg/dL (7-17); Carbon Dioxide 28 mmol/L (22-30); Chloride 99 mmol/L (98-107); Glucose 99 mg/dL (74-99); Magnesium 1.9 mg/dL (1.6-2.3); Non-African American GFR(CKD) >90 (>60 ml/min/1.73 sqM); Potassium 4.7 mmol/L (3.5-5.1); Sodium 137 mmol/L (137-145); Total Bilirubin 0.9 mg/dL (0.2-1.3); Total Protein 7.5 g/dL (6.3-8.2)
[2024-12-03] MEDS ORDERED: RX INFO: IV CONTRAST WAS GIVEN 1 EACH MISC MISCELLANE PRN (19:50)
--- NOTE | 2024-12-03 19:51 | P.CARDCATH ---
Date of Procedure: 12/03/24 Description of Procedure: DIAGNOSTIC CORONARY ANGIOGRAPHY and LEFT HEART CATH REPORT PROCEDURES PERFORMED: Left heart catheterization Selective coronary angiography Moderate conscious sedation 15 mins [Ultrasound assisted] Right radial access INDICATION: STEMI BRIEF HPI: 59-year-old female with past medical history of hypertension presented to the [facility] with substernal chest pressure-like symptoms. CONSENT: I have explained the procedural steps of above-mentioned procedures in layman's terms to the patient. I discussed the risks (including but not limited to stroke, emergent vascular or cardiac surgery or ), benefits and alternative therapies for the above-mentioned procedure. I discussed the risks of sedation/analgesia and blood product administration (if indicated). The patient has indicated understanding and acceptance of these risks. Conscious Sedation: Patient's ECG, heart rate, blood pressure, pulse oximetry were monitored throughout the duration of procedure under my direct supervision. 1 mg Versed and 50 mcg Fentanyl were used for induction of moderate conscious sedation. Total duration of moderate concious sedation 15 minutes. PROCEDURAL DETAILS: Patient was prepped and draped in sterile fashion. 1% lidocaine was infiltrated over the right radial artery. Right radial access was obtained via modified seldinger technique. [Ultrasound was used for radial access]. Medications: 5mg of verapamil was administed in the radial sheet. 4000 units of Heparin was administed once in the ER Wires and Catheter used: J wire was advanced under fluroscopy to get to aortic root. 5 saudi arabian JR 4 diagnostic catheter was utilized obtain left ventricular pressure and pressure gradint across aortic valve. 5 sa[place]abian JR 5 diagnostic catheter was used to selectively engage the right coronary ostium. 5 [place] JL 3.5 diagnostic catheter was utilized to selectively engage the left coronary ostium. Angiographic images were reviewed in detail. Catheter and wire were removed. Radial sheet was flushed. The right radial sheath was removed and a TR band was placed. Patent hemostasis was achieved. The patient tolerated the procedure well. Patient was transported back to the post catheterization holding area in stable condition. TECHNICAL DETAILS Total radiation: 94 mGy Total fluro time: 1.6 minutes Total contrast used: Isovue 50 mL Complications: [none] Estimated Blood loss: less than 15 ml HEMODYNAMICS: Aortic Pressure: 110/70 mmHg. LV pressure: 112/5 mmHg. LVEDP 12 mmHg. There was no significant gradient across the aortic valve. SELECTIVE CORONARY ARTERIOGRAPHY: LEFT MAIN: The left main is short and large caliber vessel. It bifurcates into the LAD and circumflex. Left main appears angiographically normal. LEFT ANTERIOR DESCENDING CORONARY ARTERY: LAD is a medium caliber and reaches up to the apex. Proximal mid and distal LAD appears angiographically patent. LAD gives rise to 2 small diagonal branches which appear angiographically patent. LAD and diagonal are very tortuous. LEFT CIRCUMFLEX CORONARY ARTERY: LCx is nondominant. Proximal and mid LCx are angiographically patent. Mid LCx bifurcates into 2 OM branches which are very tortuous and appears angiographically patent. After giving 2 OM branches LCx gives a small AV groove branch which is very tortuous and appears graphically patent. RIGHT CORONARY ARTERY: Dominant vessel. RCA is a medium caliber vessel. Proximal mid and distal RCA appears angiographically.. Distally decreases to small PDA and PL branch which appears angiographically patent. IMPRESSION: Angiographically patent coronary arteries Very tortuous coronary arteries Normal LVEDP PLAN: Admit to 3 3 S. telemetry floor 125 cc/h for 4 hours Obtain echocardiogram Obtain NT-proBNP lipid HbA1c Obtain ESR and CRP level Blood pressure control Monitor telemetry Performing Physician Allen Costello MD, FACC, RPVI Thank you for allowing [facility] to participate in this patient's care. Feel free to reach out in case of any followup questions.
[2024-12-03 20:32] LABS: C Reactive Protein 4.1 mg/dL (<1.0); Magnesium 1.9 mg/dL (1.6-2.3)
[2024-12-03 20:39] LABS: NT-Pro-B-Type Natriuretic Pept 132 pg/mL
[2024-12-03] MEDS: ATORVASTATIN 40 MG TAB PO SCH (21:05)
[2024-12-03] MEDS: carvediloL 6.25 MG TAB PO SCH (21:05)
[2024-12-03] MEDS: LOSARTAN 25 MG TAB PO SCH (21:06)
[2024-12-03] MEDS: amLODIPine 5 MG TAB PO SCH (21:09)
[2024-12-03] MEDS: SODIUM CHLORIDE 0.9% 1,000 ML IV SCH (22:03)
[2024-12-04] MEDS: ASPIRIN 81 MG PO SCH (09:16)
[2024-12-04] MEDS: amLODIPine 2.5 MG TAB PO SCH (09:16)
[2024-12-04] MEDS: ACETAMINOPHEN TAB 325 MG TAB PO PRN (09:24)
[2024-12-04 11:51] LABS: Chol/HDL Ratio 2.56 Ratio; LDL Cholesterol,Calculated 81.7 mg/dL (0.0-131.0)
--- NOTE | 2024-12-04 12:46 | P.HPIM ---
History of Present Illness This is a pleasant 59 years old female who was transferred from [facility] to this facility is for STEMI code. Patient says she came because of chest pain in the middle of her chest which started yesterday at about 4:00 in the morning, it was 5/10 currently improved and feeling heaviness. Patient states it is still feeling the pressure of heaviness in her chest especially if she takes deep breath with no other precipitating or relieving factor known to the patient. No extensive dyspnea or coughing She denies specific GI/ symptom or neurological symptoms She drinks about 3-4 drinks per day between prosper liquor and beer She denies smoking or illicit drugs Dr. Reardon her cloud automation tester and Dr. Pete her PCP She is afebrile and blood pressure stable She has unremarkable CBC, BMP and LFT, chest x-ray is showing no acute process EKG showing sinus rhythm at [address]-T changes proBNP is 132, TSH is normal 2.9 CRP mildly elevated at 4.1 and troponin is negative less than 0.012. Currently metformin is on hold and she is kept on aspirin 81 mg as well as Coreg Norvasc and losartan Patient had cardiac cath last night which showing patent coronary arteries Review of Systems Review of systems CONSTITUTIONAL: No fever, no malaise, no fatigue. HEENT: No recent visual problems or hearing problems. Denied any sore throat. CARDIOVASCULAR: No orthopnea, PND, no palpitations, no syncope. PULMONARY: No shortness of breath, no cough, no hemoptysis. GASTROINTESTINAL: No diarrhea, no nausea, no vomiting, no abdominal pain. Normoactive bowel sounds. NEUROLOGICAL: No headaches, no weakness, no numbness. HEMATOLOGICAL: Denies any bleeding or petechiae. GENITOURINARY: Denies any burning micturition, frequency, or urgency. MUSCULOSKELETAL/RHEUMATOLOGICAL: Denies any joint pain, swelling, or any muscle pain. ENDOCRINE: Denies any polyuria or polydipsia. Past Medical History Past Medical History: Hypertension Additional Past Medical History / Comment(s): post menopausal History of Any Multi-Drug Resistant Organisms: None Reported Past Surgical History: Section, Tubal Ligation, Uterine Ablation Past Anesthesia/Blood Transfusion Reactions: No Reported Reaction Past Psychological History: No Psychological Hx Reported Smoking Status: Former smoker Past Alcohol Use History: Daily Past Drug Use History: None Reported - Past Family History Father Family Medical History: No Reported History Additional Family Medical History / Comment(s): pts father is still living. Mother Family Medical History: Deep Vein Thrombosis (DVT) Additional Family Medical History / Comment(s): lupus inhibitor Medications and Allergies Home Medications Medication Instructions Recorded Confirmed Type Hormone 1 dose INTRADERMA Q90D 07/16/19 12/03/24 History Pellet(Estrogen/Testosterone) Acetaminophen Tab [Tylenol] 650 mg PO Q6HR PRN tab 07/17/19 12/03/24 Rx Atorvastatin Calcium [Lipitor] 20 mg PO HS #30 tab 07/17/19 12/03/24 Rx metFORMIN HCL [Glucophage] 850 mg PO HS 09/16/24 12/03/24 History Losartan [Cozaar] 50 mg PO HS 12/03/24 12/03/24 History Progesterone, Micronized 200 mg PO HS 12/03/24 12/03/24 History [Progesterone] hydroCHLOROthiazide [Hydrodiuril] 12.5 mg PO DAILY 12/03/24 12/03/24 History Allergies Allergy/AdvReac Type Severity Reaction Status Date / Time No Known Allergies Allergy Verified 12/03/24 18:32 Physical Exam Vitals: Vital Signs Temp Pulse Pulse Resp BP BP Pulse Ox 12/04/24 06:15 81 96/62 12/04/24 03:34 97.8 F 79 18 103/66 98 12/03/24 23:20 98.0 F 77 18 102/58 96 12/03/24 21:59 98.3 F 78 18 108/70 96 12/03/24 20:21 98.1 F 84 18 130/78 97 12/03/24 18:36 83 18 135/86 98 12/03/24 18:21 98.3 F 94 18 144/95 98 Intake and Output 12/03/24 12/04/24 12/04/24 21:59 06:59 14:59 Intake Total Balance Intake: IV Other: Voiding Method # Voids Weight GENERAL: The patient is alert and oriented x3, not in any acute distress. Well developed, well nourished. HEENT: Pupils are round and equally reacting to light. EOMI. No scleral icterus. No conjunctival pallor. Normocephalic, atraumatic. No pharyngeal erythema. No thyromegaly. CARDIOVASCULAR: S1 and S2 present. No murmurs, rubs, or gallops. PULMONARY: Chest is clear to auscultation, no wheezing , no crackles. ABDOMEN: Soft, nontender, nondistended, normoactive bowel sounds. No palpable organomegaly. MUSCULOSKELETAL: No joint swelling or deformity. EXTREMITIES: No cyanosis, clubbing, or pedal edema. NEUROLOGICAL: Gross neurological examination did not reveal any focal deficits. SKIN: No rashes. no petechiae. Results CBC & Chem 7: 12/03/24 18:33 12/03/24 18:33 Labs: Abnormal Lab Results - Last 24 Hours (Table) 12/03/24 12/03/24 Range/Units 18:33 18:33 APTT >200.0 H* (22.0-30.0) sec C-Reactive Protein 4.1 H (<1.0) mg/dL Thrombosis Risk Factor Assmnt - Choose All That Apply Each Factor Represents 1 point: Age 41-60 years Other Risk Factors: No Other congenital or acquired thrombophilia - If yes, enter type in comment: No Thrombosis Risk Factor Assessment Total Risk Factor Score: 1 Thrombosis Risk Factor Assessment Level: Low Risk Assessment and Plan Assessment: Chest pain with heaviness on deep breath with normal coronary arteries rule out PE Alcohol use disorder Diabetes mellitus Hypertension Plan: Patient evaluated by cloud automation tester She had patent coronary artery and cardiac cath Continued on aspirin Will check D-dimer if positive then will check CT of the chest, risk and benefit explained to the patient including but not limited to the risk of nephrotoxicity and permanent damage. Patient agreeable for the test. CIWA protocol and thiamine Labs and medication were reviewed.. Continue same treatment. Continue with symptomatic treatment. Resume home medication. Monitor labs and vitals. DVT and GI prophylaxis. Further recommendations as per clinical course of the patient DVT prophylaxis: Subcutaneous heparin GI Prophylaxis: Pepcid PT/OT: Pending Prognosis is guarded
[2024-12-04] MEDS ORDERED: LORazepam 0.5 MG TAB PO PRN (15:03)
[2024-12-04] MEDS ORDERED: LORazepam 1 MG TAB PO PRN ×3 (15:03)
--- NOTE | 2024-12-04 19:36 | P.PN ---
Subjective Progress Note Date: 12/04/24 HISTORY OF PRESENTING ILLNESS: Patient is a 59-year-old female with past medical history of hypertension and dyslipidemia. She presented to [facility] because of substernal chest pressure. She reports that this morning around 4 AM she woke up because of substernal chest pressure which has been persistent. Over the course of time it has gotten worse and around 2 PM she decided to come to the ER. There was nothing that would make the chest pain get worse or better. She has mostly stayed in the bed throughout the day and hope of feeling better. She denies any prior history of coronary artery disease. She denies any history of stroke, malignancies, bleeding problems. Does not smoke marijuana or cigarettes. Does use alcohol 2-3 drinks almost every day basis beer and wine. Denies any relevant family history of premature coronary artery disease or sudden cardiac I was notified by [facility] ER around 6 PM about the chest pain and mild abnormal EKG. On review of the EKG it appears to be sinus rhythm with subtle [address] elevations in inferior lead with lateral restrictions. For this STEMI was activated and patient was transferred to [facility]. Progress note 12/04/2024 Yesterday patient presented from [facility] for possible STEMI with subtle ST elevations and substernal chest pressure-like symptoms. Her heart catheterization did not show any significant obstructive coronary artery disease or any evidence of dissection or scad. Heart cath did show torturous coronary arteries. Today she reports that her chest pain is much better. Her ESR and CRP are not very elevated and is not consistent with pericarditis. She does report that mostly her chest pain is when she takes a deep breath. PHYSICAL EXAMINATION: Neck: Brisk carotid upstroke, no jugular venous distention. Lungs: Clear to auscultation. Heart: Regular rate and rhythm, S1-S2, , no murmur or rub. Abdomen: Soft nontender, positive bowel sounds. Extremities: No edema, intact distal pulses. Neuro: Alert, oritented, no focal deficits. Detailed neuro exam was not performed. ASSESSMENT: # Presented as inferolateral STEMI however normal coronary arteries # Essential hypertension # Dyslipidemia # Daily alcohol use 2-3 drinks Cardiac testing ESR and CRP not very elevated, HbA1c is normal, NT-proBNP and LDL are WNL. TSH 2.9. PLAN: Continue aspirin, Lipitor, amlodipine 2.5 mg, losartan 25 mg, Coreg 6.25 mg twice daily Monitor hemodynamics Obtain echocardiogram If echocardiogram is normal, consider discharging patient with recommended outpatient follow-up. Reduce alcohol use Objective - Vital Signs Vital signs: Vital Signs Temp 97.9 F 12/04/24 19:32 Pulse 75 12/04/24 19:32 Resp 16 12/04/24 19:32 BP 120/73 12/04/24 19:32 Pulse Ox 97 12/04/24 19:32 FiO2 Intake & Output 12/04/24 12/04/24 12/05/24 06:59 18:59 06:59 Intake Total Balance Weight Intake: IV Other: Voiding Method Toilet # Voids 1 - Labs CBC & Chem 7: 12/03/24 18:33 12/03/24 18:33 Labs: Abnormal Lab Results - Last 24 Hours (Table) 12/03/24 12/03/24 Range/Units 18:33 18:33 APTT >200.0 H* (22.0-30.0) sec C-Reactive Protein 4.1 H (<1.0) mg/dL HDL Cholesterol 65.50 H (40.00-60.00) mg/dL
[2024-12-05] MEDS: THIAMINE 100 MG TAB PO SCH (08:12)
--- NOTE | 2024-12-05 14:07 | P.PN ---
Subjective Progress Note Date: 12/05/24 HISTORY OF PRESENTING ILLNESS: Patient is a 59-year-old female with past medical history of hypertension and dyslipidemia. She presented to [facility] because of substernal chest pressure. She reports that this morning around 4 AM she woke up because of substernal chest pressure which has been persistent. Over the course of time it has gotten worse and around 2 PM she decided to come to the ER. There was nothing that would make the chest pain get worse or better. She has mostly stayed in the bed throughout the day and hope of feeling better. She denies any prior history of coronary artery disease. She denies any history of stroke, malignancies, bleeding problems. Does not smoke marijuana or cigarettes. Does use alcohol 2-3 drinks almost every day basis beer and wine. Denies any relevant family history of premature coronary artery disease or sudden cardiac I was notified by [facility] ER around 6 PM about the chest pain and mild abnormal EKG. On review of the EKG it appears to be sinus rhythm with subtle [address] elevations in inferior lead with lateral restrictions. For this STEMI was activated and patient was transferred to [facility]. Progress note 12/04/2024 Yesterday patient presented from [facility] for possible STEMI with subtle ST elevations and substernal chest pressure-like symptoms. Her heart catheterization did not show any significant obstructive coronary artery disease or any evidence of dissection or scad. Heart cath did show torturous coronary arteries. Today she reports that her chest pain is much better. Her ESR and CRP are not very elevated and is not consistent with pericarditis. She does report that mostly her chest pain is when she takes a deep breath. 12/05 Patient seen and examined. Patient denies chest pain, no shortness of breath. Echocardiogram is pending. Blood pressure 123/73, heart rate 79, pulse ox 96% on room air. No repeat blood work today. PHYSICAL EXAMINATION: Neck: Brisk carotid upstroke, no jugular venous distention. Lungs: Clear to auscultation. Heart: Regular rate and rhythm, S1-S2, , no murmur or rub. Abdomen: Soft nontender, positive bowel sounds. Extremities: No edema, intact distal pulses. Neuro: Alert, oritented, no focal deficits. Detailed neuro exam was not performed. ASSESSMENT: # Presented as inferolateral STEMI however normal coronary arteries # Essential hypertension # Dyslipidemia # Daily alcohol use 2-3 drinks Cardiac testing ESR and CRP not very elevated, HbA1c is normal, NT-proBNP and LDL are WNL. TSH 2.9. PLAN: Continue aspirin, Lipitor, amlodipine 2.5 mg, losartan 25 mg, Coreg 6.25 mg twice daily Monitor hemodynamics Obtain echocardiogram If echocardiogram is normal, patient is cleared for discharge from cardiology and may follow-up in the office in 1 week.. Reduce alcohol use Nurse practitioner note has been reviewed, I agree with documented findings and plan of care. Patient was seen and examined. Objective - Vital Signs Vital signs: Vital Signs Temp 97.7 F 12/05/24 08:15 Pulse 79 12/05/24 08:17 Resp 16 12/05/24 08:17 BP 123/73 12/05/24 08:15 Pulse Ox 96 12/05/24 08:15 FiO2 Intake & Output 12/04/24 12/05/24 12/05/24 18:59 06:59 18:59 Intake Total 200 Balance 200 Weight 104 kg Intake: Oral 200 Other: Voiding Method Toilet Toilet Toilet # Voids 1 1 - Labs CBC & Chem 7: 12/03/24 18:33 12/03/24 18:33 Labs: Abnormal Lab Results - Last 24 Hours (Table) 12/03/24 Range/Units 18:33 C-Reactive Protein 4.1 H (<1.0) mg/dL HDL Cholesterol 65.50 H (40.00-60.00) mg/dL
--- NOTE | 2024-12-05 16:28 | CA ---
Transthoracic Echo Report Name: Rubina Babin Age: 59 Gender: F : 1965 Exam Date: 12/05/2024 08:22 Exam Location: [facility] Ht (in): 63 Wt (lb): 136 Ordering Physician: Allen Costello MD ([id number]) Attending/Referring Phys: Spider Assembler Funmi Mccann RDCS Procedure CPT: Indications: stemi Cardiac Hx: Technical Quality: Good Contrast 1: Total Dose (mL): Contrast 2: Total Dose (mL): MEASUREMENTS (Male / Female) Normal Values 2D ECHO LV Diastolic Diameter PLAX 4.7 cm 4.2 - 5.9 / 3.9 - 5.3 cm LV Systolic Diameter PLAX 3.3 cm IVS Diastolic Thickness 0.6 cm 0.6 - 1.0 / 0.6 - 0.9 cm LVPW Diastolic Thickness 1.0 cm 0.6 - 1.0 / 0.6 - 0.9 cm LV Relative Wall Thickness 0.3 LVOT Diameter 2.3 cm LV Diastolic Volume MOD BP 91.6 cm??? 67 - 155 / 56 - 104 cm??? LV Systolic Volume MOD BP 34.3 cm??? 22 - 58 / 19 - 49 cm??? LV Ejection Fraction MOD BP 62.5 % >= 55 % LV Cardiac Index MOD BP 2406.2 cm???/min???m??? LV Diastolic Volume MOD 4C 88.5 cm??? LV Systolic Volume MOD 4C 36.5 cm??? LV Ejection Fraction MOD 4C 58.8 % LV Cardiac Index MOD 4C 2185.6 cm???/min???m??? LV Diastolic Length 4C 8.0 cm LV Systolic Length 4C 6.7 cm LV Diastolic Volume MOD 2C 90.9 cm??? LV Systolic Volume MOD 2C 32.1 cm??? LV Ejection Fraction MOD 2C 64.7 % LV Cardiac Index MOD 2C 2471.7 cm???/min???m??? LV Diastolic Length 2C 7.6 cm LV Systolic Length 2C 6.6 cm LA Volume 44.3 cm??? 18 - 58 / 22 - 52 cm??? LA Volume Index 26.6 cm???/m??? 16 - 28 cm???/m??? DOPPLER AV Peak Velocity 116.4 cm/s AV Peak Gradient 5.4 mmHg AV Mean Velocity 78.0 cm/s AV Mean Gradient 2.7 mmHg AV Velocity Time Integral 21.8 cm LVOT Peak Velocity 96.7 cm/s LVOT Peak Gradient 3.7 mmHg LVOT Velocity Time Integral 18.0 cm LVOT Stroke Volume 76.0 cm??? LVOT Stroke Volume Index 46.3 ml/m??? LVOT Cardiac Index 3193.2 cm???/min???m??? AV Area Cont Eq vti 3.5 cm??? AV Area Cont Eq pk 3.5 cm??? MV Area PHT 4.7 cm??? Mitral E Point Velocity 49.6 cm/s Mitral A Point Velocity 68.0 cm/s Mitral E to A Ratio 0.7 MV Deceleration Time 163.0 ms PV Peak Velocity 72.8 cm/s PV Peak Gradient 2.1 mmHg FINDINGS Left Ventricle Left ventricular ejection fraction is estimated at 55-60 %. Left ventricular cavity size normal. Left ventricular wall thickness normal. No obvious regional wall motion abnormalities. Right Ventricle Normal right ventricular size and function. Unable to estimate the right ventricular systolic pressure. Right Atrium Normal right atrial size. Left Atrium Normal left atrial size. Mitral Valve Structurally normal mitral valve. No evidence for mitral valve prolapse. No mitral stenosis. Trace mitral regurgitation. Aortic Valve Trileaflet aortic valve. No aortic valve stenosis or regurgitation. Tricuspid Valve Structurally normal tricuspid valve. No tricuspid stenosis. Trace tricuspid regurgitation. Pulmonic Valve Structurally normal pulmonic valve. No pulmonic stenosis. Trace pulmonic regurgitation. Pericardium No pericardial effusion. Aorta Normal size aortic root and proximal ascending aorta. CONCLUSIONS Left ventricular ejection fraction 55-60% Trace mitral regurgitation Trace tricuspid regurgitation Trace pulmonic regurgitation No pericardial effusion Previewed by: Dr. Eliazar Gates DO (Electronically Signed) Final Date: 05 December 2024 16:27
--- NOTE | 2024-12-05 22:34 | P.PN ---
Subjective Progress Note Date: 12/05/24 Patient seen today without angina she is undergoing echocardiogram results pending she denies any nausea vomiting or intestinal problems. She was transferred from [facility] to [facility] for inferior lateral STEMI. Objective - Vital Signs Vital signs: Vital Signs Temp 98 F 12/05/24 19:51 Pulse 67 12/05/24 19:51 Resp 16 12/05/24 19:51 BP 100/65 12/05/24 19:51 Pulse Ox 99 12/05/24 19:51 FiO2 Intake & Output 12/05/24 12/05/24 12/06/24 06:59 18:59 06:59 Intake Total 680 Balance 680 Weight 104 kg Intake: Oral 680 Other: Voiding Method Toilet Toilet Toilet # Voids 1 2 - Exam GENERAL: This is a 59-year-old in no apparent distress at the time of examination. Pleasant and cooperative. HEENT: Head is atraumatic, normocephalic. Pupils are equal, round, and reactive to light. Sclerae anicteric. Conjunctivae are clear. Mucus membranes of the mouth are moist. Neck is supple. RESPIRATORY: Clear to auscultation. No wheezes, rales, or rhonchi. CARDIOVASCULAR: Regular rate and rhythm. S1 and S2 noted. No systolic or diastolic murmur auscultated. No JVD noted. No S3 or S4 noted. GASTROINTESTINAL: No distention noted. Abdomen soft and round. Normal active bowel sounds auscultated x 4 quadrants. No pain or tenderness noted upon palpation. INTEGUMENTARY: No cyanosis. No jaundice. No rashes noted. No cellulitis noted. EXTREMITIES: 2+ peripheral pulses. No evidence of peripheral edema. No calf tenderness noted. NEUROLOGIC: Cranial nerves II-XII intact. PSYCHIATRIC: Awake, alert, and oriented X 3. Appropriate affect. Intact judgement and insight. - Labs CBC & Chem 7: 12/03/24 18:33 12/03/24 18:33 Assessment and Plan (1) Chest pain Current Visit: Yes Status: Acute Code(s): R07.9 - CHEST PAIN, UNSPECIFIED SNOMED Code(s): 91809153 (2) STEMI (ST elevation myocardial infarction) Current Visit: Yes Status: Acute Code(s): I21.3 - ST ELEVATION (STEMI) MYOCARDIAL INFARCTION OF [facility] SITE SNOMED Code(s): 39529684 (3) Accelerated hypertension Current Visit: No Status: Acute Code(s): I10 - ESSENTIAL (PRIMARY) HYPERTENSION SNOMED Code(s): 52509269 Plan: Await echocardiogram results and further recommendations by cardiology she will need to be on a statin blood pressure control and and lifestyle modifications.
[2024-12-06 03:33] VITALS: RESP 16
[2024-12-06 09:10] VITALS: BP 122/83; PULSE 77; TEMP 98.2
--- NOTE | 2024-12-06 14:17 | P.PN ---
Subjective Progress Note Date: 12/06/24 HISTORY OF PRESENTING ILLNESS: Patient is a 59-year-old female with past medical history of hypertension and dyslipidemia. She presented to [facility] because of substernal chest pressure. She reports that this morning around 4 AM she woke up because of substernal chest pressure which has been persistent. Over the course of time it has gotten worse and around 2 PM she decided to come to the ER. There was nothing that would make the chest pain get worse or better. She has mostly stayed in the bed throughout the day and hope of feeling better. She denies any prior history of coronary artery disease. She denies any history of stroke, malignancies, bleeding problems. Does not smoke marijuana or cigarettes. Does use alcohol 2-3 drinks almost every day basis beer and wine. Denies any relevant family history of premature coronary artery disease or sudden cardiac I was notified by [facility] ER around 6 PM about the chest pain and mild abnormal EKG. On review of the EKG it appears to be sinus rhythm with subtle [address] elevations in inferior lead with lateral restrictions. For this STEMI was activated and patient was transferred to [facility]. Progress note 12/04/2024 Yesterday patient presented from [facility] for possible STEMI with subtle ST elevations and substernal chest pressure-like symptoms. Her heart catheterization did not show any significant obstructive coronary artery disease or any evidence of dissection or scad. Heart cath did show torturous coronary arteries. Today she reports that her chest pain is much better. Her ESR and CRP are not very elevated and is not consistent with pericarditis. She does report that mostly her chest pain is when she takes a deep breath. 12/05 Patient seen and examined. Patient denies chest pain, no shortness of breath. Echocardiogram is pending. Blood pressure 123/73, heart rate 79, pulse ox 96% on room air. No repeat blood work today. 12/06 Patient seen and examined. She denies chest pain, shortness of breath. Echocardiogram reveals EF of 55 to 60%, trace mitral regurgitation, trace tricuspid regurgitation, trace pulmonic regurgitation. No pericardial effusion. Results of testing reviewed with the patient. Patient has been started on number of medications during this hospitalizations and these have been sent to her pharmacy by attending. We would recommend discontinuing amlodipine and will remove this from her discharge list. Blood pressure 109/60, heart rate 72, pulse ox 99% on room air.. PHYSICAL EXAMINATION: Neck: Brisk carotid upstroke, no jugular venous distention. Lungs: Clear to auscultation. Heart: Regular rate and rhythm, S1-S2, , no murmur or rub. Abdomen: Soft nontender, positive bowel sounds. Extremities: No edema, intact distal pulses. Neuro: Alert, oritented, no focal deficits. Detailed neuro exam was not performed. ASSESSMENT: # Presented as inferolateral STEMI however normal coronary arteries # Essential hypertension # Dyslipidemia # Daily alcohol use 2-3 drinks Cardiac testing ESR and CRP not very elevated, HbA1c is normal, NT-proBNP and LDL are WNL. TSH 2.9. PLAN: Continue aspirin, Lipitor, losartan 25 mg, Coreg 6.25 mg twice daily Discontinue amlodipine for discharge Patient is cleared for discharge from cardiology and may follow-up in the office in 1 week. Reduce alcohol use Nurse practitioner note has been reviewed, I agree with documented findings and plan of care. Patient was seen and examined. Objective - Vital Signs Vital signs: Vital Signs Temp 98.2 F 12/06/24 09:00 Pulse 77 12/06/24 09:00 Resp 16 12/06/24 09:00 BP 122/83 12/06/24 09:00 Pulse Ox 98 12/06/24 09:00 FiO2 Intake & Output 12/05/24 12/06/24 12/06/24 18:59 06:59 18:59 Intake Total 680 180 Balance 680 180 Weight 104 kg Intake: Oral 680 180 Other: Voiding Method Toilet Toilet # Voids 2 1 - Labs CBC & Chem 7: 12/03/24 18:33 12/03/24 18:33
--- NOTE | 2024-12-06 15:00 | P.DS ---
Providers Date of admission: 12/03/24 18:22 Expected date of discharge: 12/06/24 Attending physician: Ramu Pete Consults: 12/03/24 18:22 Consult Physician Stat Consulting Provider: Allen Costello Consult Reason/Comments: STEMI, transfer Do you want consulting provider notified?: Already Contacted Primary care physician: Ramu Pete [facility] Course: Final Diagnoses: (1) Chest pain Current Visit: Yes Status: Acute Code(s): R07.9 - CHEST PAIN, UNSPECIFIED SNOMED Code(s): 20128846 (2) STEMI (ST elevation myocardial infarction), inferiolateral Current Visit: Yes Status: Acute Code(s): I21.3 - ST ELEVATION (STEMI) MYOCARDIAL INFARCTION OF [facility] SITE SNOMED Code(s): 93027531 (3) Accelerated hypertension Current Visit: No Status: Acute Code(s): I10 - ESSENTIAL (PRIMARY) HYPERTENSION SNOMED Code(s): 44915518 (4) Daily alcohol use 2-3 drinks Hospital course:Patient seen today without angina she is undergoing echocardiogram results pending she denies any nausea vomiting or intestinal problems. She was transferred from [facility] to [facility] for inferior lateral STEMI. Await echocardiogram results and further recommendations by cardiology she will need to be on a statin blood pressure control and and lifestyle modifications. 12/06/2024 echocardiogram reported EF of 55 to 60%, trace mitral regurgitation, trace tricuspid regurgitation, trace pulmonic regurgitation. No pericardial effusion. Results of testing reviewed with the patient. Denies chest pain, palpitations or shortness of breath. Vital signs stable. Maintained on aspirin, Lipitor, decreased losartan, Coreg with amlodipine discontinued. Cleared by cardiology for discharge. Alcohol abstinence reinforced. Patient will be discharged home today in a stable condition with guarded prognosis. The impression and plan of care has been dictated as directed. : I performed a history and examination of this patient, discussed the same with the dictator. I agree with the dictator's note ,documented as a scribe. Any additional findings or plans will be noted. Patient Condition at Discharge: Stable Plan - Discharge Summary Discharge Rx Participant: Yes New Discharge Prescriptions: New carvediloL [Coreg] 6.25 mg PO BID-W/MEALS #60 tab Losartan [Cozaar] 25 mg PO DAILY #30 tab Aspirin EC [Ecotrin Low Dose] 81 mg PO DAILY #30 tab Atorvastatin [Lipitor] 40 mg PO HS #30 tab Thiamine [Vitamin B-1] 100 mg PO DAILY tab Continue Hormone Pellet(Estrogen/Testosterone) 1 dose INTRADERMA Q90D Acetaminophen Tab [Tylenol] 650 mg PO Q6HR PRN tab PRN Reason: Mild Pain Or Fever > 100.5 metFORMIN HCL [Glucophage] 850 mg PO HS Progesterone, Micronized [Progesterone] 200 mg PO HS Discontinued Atorvastatin Calcium [Lipitor] 20 mg PO HS #30 tab hydroCHLOROthiazide [Hydrodiuril] 12.5 mg PO DAILY Losartan [Cozaar] 50 mg PO HS Discharge Medication List Hormone Pellet(Estrogen/Testosterone) 1 dose INTRADERMA Q90D 07/16/19 [History] Acetaminophen Tab [Tylenol] 650 mg PO Q6HR PRN tab 07/17/19 [Rx] metFORMIN HCL [Glucophage] 850 mg PO HS 09/16/24 [History] Progesterone, Micronized [Progesterone] 200 mg PO HS 12/03/24 [History] Aspirin EC [Ecotrin Low Dose] 81 mg PO DAILY #30 tab 12/06/24 [Rx] Atorvastatin [Lipitor] 40 mg PO HS #30 tab 12/06/24 [Rx] Losartan [Cozaar] 25 mg PO DAILY #30 tab 12/06/24 [Rx] Thiamine [Vitamin B-1] 100 mg PO DAILY tab 12/06/24 [Rx] carvediloL [Coreg] 6.25 mg PO BID-W/MEALS #60 tab 12/06/24 [Rx] Follow up Appointment(s)/Referral(s): Roberto Rivera MD [STAFF PHYSICIAN] - 1 Week (December 13 1:15) Ramu Pete DO [Primary Care Provider] - 1 Week (December 12, 1:00) Patient Instructions/Handouts: Chest Pain (DC), After Radial Heart Catheterization (GEN) Activity/Diet/Wound Care/Special Instructions: no ETOH avoid bending/flexing the wrist for 1 week do not submerge wrist in water do not lift anything more than 10 pounds for 1 week Discharge Disposition: HOME SELF-CARE
== END 2024-12-06 10:11 | disposition home or self-care (01) | DRG 282 ==
LOC: SUPCPDRO 18:19 → EC 18:19 → 2SICU 18:22 → 3SCARD 19:35
PROVIDERS: ADMIT Family Medicine; ATTEND Family Medicine
PROC: 4A023N7 Measurement of Cardiac Sampling and Pressure, Left Heart, Percutaneous Approach (ICD-10-PCS; principal; 2024-12-03 18:20)
PROC: B2111ZZ Fluoroscopy of Multiple Coronary Arteries using Low Osmolar Contrast (ICD-10-PCS; principal; 2024-12-03 18:20)
DX: I21.19 ST elevation (STEMI) myocardial infarction involving other coronary artery of inferior wall (principal); E11.9 Type 2 diabetes mellitus without complications; F10.10 Alcohol abuse, uncomplicated; I10 Essential (primary) hypertension; I77.1 Stricture of artery; Z71.41 Alcohol abuse counseling and surveillance of alcoholic; E78.5 Hyperlipidemia, unspecified; Z79.84 Long term (current) use of oral hypoglycemic drugs; Z79.899 Other long term (current) drug therapy; Z87.891 Personal history of nicotine dependence; Z79.85 Long-term (current) use of injectable non-insulin antidiabetic drugs; Z79.890 Hormone replacement therapy; Z28.310 Unvaccinated for COVID-19
CPT/HCPCS: 71045; 80053; 80061; 83036; 83735; 83880; 84443; 84484; 85025; 85379; 85610; 85652; 85730; 86140; 93005; 93306; 99285